=== PATIENT | female | born 1970 | race Caucasian/White ===

== ENCOUNTER 2025-04-18 03:00 | Emergency (ER) | payer MEDICAID, SELFPAY ==
[2025-04-18 03:01] VITALS: BMI 36.8
[2025-04-18 03:13] VITALS: BP 108/81; PULSE 122; RESP 18; TEMP 36.8; O2SAT 98
--- NOTE | 2025-04-18 03:27 | EDRME_ITS ---
Rapid Medical Screening Exam [facility] Arrival date/time: 04/18/25 03:00 54F with history of drug use presents to ED with 2 weeks of worsening painful rash after taking some new med, possibly Lasix. Chief Complaint: Skin/Abscess/Foreign Body Vital signs: Vital Signs Temperature 98.2 F 04/18/25 03:13 Pulse Rate 122 H 04/18/25 03:13 Respiratory Rate 18 04/18/25 03:13 Blood Pressure 108/81 04/18/25 03:13 Pulse Oximetry (%) 98 04/18/25 03:13 Oxygen Delivery Method Room Air 04/18/25 03:13
--- NOTE | 2025-04-18 03:36 | PD.EDSKIN ---
ED Skin Abcess FB-RME/HPI General Chief complaint: Skin/Abscess/Foreign Body Stated complaint: OOZING RASH ALL OVER BODY Time Seen by Provider: 04/18/25 03:37 Arrival date/time: 04/18/25 03:00 RME / HPI RME / HPI narrative: 04/18/25 03:00 54F with history of drug use presents to ED with 2 weeks of worsening painful rash after taking some new med, possibly Lasix. DR. GARDUNO MAIN ED EVALUATION: 54 y/o female with Hx of Methamphetamine use and Renal Disease presents to ED c/o all over painful red body rash x 2 weeks. Patient report rash spread to the face approximately 4 days ago after visiting her PCP. Patient has an upcoming appointment with a Railcar Carpenter on 04/21/2025. No other concerns or complaints expressed at this time. Related Data Previous Rx's ?Medication ?Instructions ?Recorded albuterol sulfate 90 mcg/actuation 2 puff inhalation Q6H PRN 07/21/19 aerosol inhaler shortness of breath or wheezing #6.7 grams loratadine 10 mg capsule 10 mg PO QDAY #30 caps 08/29/20 naproxen 500 mg tablet (Naprosyn) 500 mg PO BID PRN pain #30 tabs 09/04/20 [id number] 3.5 1 drp ophthalmic (eye) QID #5 mL 08/25/22 mg/mL-10,000 unit/mL-0.1% eye drops oxycodone-acetaminophen 5 mg-325 1 tab PO Q6H PRN pain #10 tabs 03/23/23 mg tablet (Percocet) prednisone 50 mg tablet 50 mg PO QDAY #7 tabs 04/18/25 Allergies Allergy/AdvReac Type Severity Reaction Status Date / Time latex Allergy Severe Rash Verified 03/29/23 13:50 Sulfa (Sulfonamide Allergy Severe RASH Verified 03/29/23 13:50 Antibiotics) Review of Systems Review of Systems Systems Reviewed: All systems reviewed, normal except as documented Past Medical History Past Medical History CARDIAC: Positive Cardiac Disorders and Hypertension RESPIRATORY: Positive Asthma GENITOURINARY: Positive Renal Disease ENDOCRINE: Positive Endocrine Disorders and Diabetes Mellitus Type 2 Surgical History SURGICAL: Positive Abdominal Surgery Social History SMOKING STATUS: Current some day smoker SUBSTANCE USE: methamphetamine SUBSTANCE LAST USED: unknown ED Exam Narrative Physical exam: Generally patient is alert in mild distress secondary to rash, heart regular rate and rhythm, lungs clear to auscultation equal bilaterally, oropharynx is moist and clear without wounds, abdomen soft bowel sounds present nondistended nontender, skin shows erythematous dried plaques all over the body including face and extremities. These are not confined only to the extensor surfaces. Course Quality Measures none Orders Category Date Time Status predniSONE Med 04/18/25 03:36 Discontinued 60 mg PO X1 ONE Vital Signs Vital signs: Vital Signs Temperature 98.2 F 04/18/25 03:13 Pulse Rate 122 H 04/18/25 03:13 Respiratory Rate 18 04/18/25 03:13 Blood Pressure 108/81 04/18/25 03:13 Pulse Oximetry (%) 98 04/18/25 03:13 Oxygen Delivery Method Room Air 04/18/25 03:13 Skin / Abscess / Foreign Body MDM Narrative MDM Narrative:: Scribe Attestation: IMarianela, am scribing for and in the presence of Dr. Garduno. Provider Notation: Although this document has been carefully reviewed, there may still be some phonetic and other typographical errors. These errors are purely grammatical due to imperfections in the software program and should not be construed in any way to? compromise the substance of the patient's medical care during this visit. Differential diagnosis: Psoriasis, eczema, dermatitis Patient will receive prednisone 60 mg p.o. and discharged on prednisone to be taken as prescribed. Patient has an appointment with a marble mechanic helper in 3 days. She must keep that appointment. I am uncertain whether or not this is psoriasis or eczema however I would err on stating that it is psoriasis because it is not only confined to extensor surfaces. Patient data External records reviewed:: [facility] previous records (Reviewed prior ED records from 04/22/23. Patient was seen for Acute renal failure (ARF).) Clinical information provided by:: patient Social determinants that could affect healthcare access:: substance use Patient has the following chronic illnesses:: Hypertension, Asthma, Renal Disease, Diabetes Mellitus Type 2 How is presenting disease/condition affected by chronic disease/condition?: exacerbated by Evaluation data The following diagnostics were reviewed and interpreted by me:: other (specify) (N/A) Lab and/or radiology exams considered but not ordered:: None Interpretation Summary: N/A Medications / Prescriptions Medications or Prescriptions considered but not ordered:: None Medication administrations:: Medication Administration History Discontinued Medications Prednisone (Prednisone 20 Mg Tablet) 60 mg PO X1 ONE Stop: 04/18/25 03:37 See above if any. Consultations Consultation(s) initiated? (list below): No Diagnosis Skin/Abscess Differential Diagnosis: abscess of skin or subcutaneous tissue, viral exanthem, dermatophytosis, urticaria, allergic reaction to drug, cellulitis, eczema, impetigo and contact dermatitis Most likely diagnosis given after review of the tests above:: None Admission Indicated Admission indicated?: not indicated Explain why admission is indicated or not indicated:: Patient does not meet admission criteria. Admission Request Was there a request for admission?: No Disposition Plan Disposition Plan: Discharge Discharge Attestation Discharge Attestation: The patient and all family members were given an opportunity to ask questions and understood the discharge instructions. Discharge instructions specifically effects, indications for sooner follow up or return to the emergency department, and the expected course of current diagnosis. Patient condition: Stable Discharge Plan Plan Patient Disposition: HOME (Self Care) Prescriptions/Referrals Prescriptions/Med Rec: New prednisone 50 mg tablet 50 mg PO QDAY Qty: 7 0RF No Action albuterol sulfate 90 mcg/actuation HFA aerosol inhaler 2 puff INH Q6H PRN (Reason: shortness of breath or wheezing) Qty: 6.7 0RF loratadine 10 mg capsule 10 mg PO QDAY Qty: 30 0RF naproxen [Naprosyn] 500 mg tablet 500 mg PO BID PRN (Reason: pain) Qty: 30 0RF neomycin-polymyxin B-dexameth 3.5mg/mL-10,000 unit/mL-0.1 % drops,suspension 1 drp ophthalmic (eye) QID Qty: 5 0RF oxycodone-acetaminophen [Percocet] 5-325 mg tablet 1 tab PO Q6H MDD 6 tabs PRN (Reason: pain) Qty: 10 0RF Problem List Clinical Impression: Psoriasis Patient/Caregiver Discharge Instructions Education Materials: ED Psoriasis Additional Instructions: Take the steroid as prescribed. Keep your appointment with the marble mechanic helper on Sunday. Print Language: Comoran Stand Alone Forms: [facility]ison Award Info., Patient Portal Info Letter
--- NOTE | 2025-04-18 04:25 | PC.NURSE ---
FACE AND ARMS NOTED TO BE SCALY IN APPEARANCE.
== END 2025-04-18 04:28 | disposition home or self-care (01) ==
LOC: SERX 05:50
PROVIDERS: Emergency Provider Emergency Medicine
DX: L40.9 Psoriasis, unspecified (principal)
CPT/HCPCS: 99282; J7512

== ENCOUNTER 2025-05-12 19:12 | Emergency (ER) | payer MEDICAID, SELFPAY ==
[2025-05-12 19:22] VITALS: BP 172/96; PULSE 98; RESP 19; TEMP 36.7; O2SAT 96
--- NOTE | 2025-05-12 19:26 | EKG_ITS ---
[facility] Test Date: 2025-05-12 Pat Name: CLOVIS CALVILLO Department: Room: - Gender: Female Ambulatory Care: : 1970 Requested By: Monster Bradley Order Number: [id number] Reading MD: Monster Bradley Measurements Intervals Warren Rate: 97 P: 54 MD: 153 QRS: 46 QRSD: 89 T: 47 QT: 315 QTc: 400 Interpretive Statements SINUS RHYTHM Compared to ECG 03/21/2023 17:57:39 No significant changes /store/S0/[id number].pdf
--- NOTE | 2025-05-12 19:26 | PD.EDRME ---
Rapid Medical Screening Exam RME Arrival date/time: 05/12/25 19:12 Chief Complaint: General Adult/Misc Complain Time Seen by Provider: 05/12/25 19:19 Vital signs: Vital Signs Temperature 98.1 F 05/12/25 19:22 Pulse Rate 98 05/12/25 19:22 Respiratory Rate 19 05/12/25 19:22 Blood Pressure 172/96 H 05/12/25 19:22 Pulse Oximetry (%) 96 05/12/25 19:22 Oxygen Delivery Method Room Air 05/12/25 19:22 RME Narrative: SOB, BLE swelling x1 week
[2025-05-12 20:02] LABS: Basophils # (Auto) 0.1 Thou/mm3 (0.0-0.2); Basophils % (Auto) 1 % (0-2.5); Eosinophils # (Auto) 0.3 Thou/mm3 (0.0-0.5); Eosinophils % (Auto) 5 % (0-10); Hematocrit 37.3 % (36.0-46.0); Hemoglobin 12.0 g/dL (12.0-16.0); Immature Granulocytes Auto 0.04 Thou/mm3 (0.00-0.00); Lymphocytes # (Auto) 2.1 Thou/mm3 (1.0-4.8); Lymphocytes % (Auto) 29 % (10-50); Mean Corpuscular HGB Conc 32.2 g/dl (31.0-37.0); Mean Corpuscular Hemoglobin 29.2 pg (25.0-35.0); Mean Corpuscular Volume 91 fL (80-100); Monocytes # (Auto) 0.5 Thou/mm3 (0.0-0.8); Monocytes % (Auto) 7 % (0-12); Neutrophils # (Auto) 4.1 Thou/mm3 (1.8-7.7); Neutrophils % (Auto) 58 % (37-80); Nucleated Red Blood Cell # 0.00 Thou/mm3 (0.00-0.00); Nucleated Red Blood Cell % 0 /100 WBC (0); Platelet Count 243 Thou/mm3 (140-440); RDW Standard Deviation 43.8 fL (36.4-46.3); Red Blood Count 4.11 Miln/mm3 (4.00-5.20); White Blood Count 7.0 Thou/mm3 (3.6-11.0)
[2025-05-12 20:31] LABS: B-Type Natriuretic Peptide 107 pg/mL (0-100)
[2025-05-12 20:36] LABS: Alanine Aminotransferase 20 U/L (10-49); Albumin, Serum 4.0 gm/dL (3.5-5.0); Albumin/Globulin Ratio 1.7 (1.2-2.2); Alkaline Phosphatase 167 U/L (46-116); Anion Gap 8 (7-16); Aspartate Amino Transferase < 10 U/L (0-34); BUN/Creatinine Ratio 11 Ratio (12-20); Bilirubin,Total 0.2 mg/dL (0.3-1.2); Blood Urea Nitrogen 10 mg/dL (9-23); Calcium 9.7 mg/dL (8.3-10.6); Calcium (Corrected) 9.7 mg/dL (8.5-10.1); Carbon Dioxide 26.4 mMol/L (20.0-31.0); Chloride 101 mMol/L (98-107); Creatinine (Component) 0.9 mg/dL (0.6-1.3); Globulin 2.4 gm/dL (2.3-3.5); Osmolality,Calculated 293 (275-295); Potassium 4.6 mMol/L (3.4-5.1); Sodium 135 mMol/L (136-145); Total Protein 6.4 gm/dL (5.7-8.2); Troponin I < 0.020 ng/mL (0.0-0.045); eGFR > 60 See Note
[2025-05-12 20:45] LABS: Glucose 529 mg/dL (74-106)
--- NOTE | 2025-05-12 21:13 | PC.NURSE ---
PT CALLED X 2 FOR XRAY NO ANSWER AT ER LOBBY OR OUTSIDE ER.
--- NOTE | 2025-05-12 21:16 | PC.NURSE ---
NO ANSWER AT ER LOBBY OR OUTSIDE ER TO BE PUT TO ROOM.
--- NOTE | 2025-05-12 21:25 | PC.NURSE ---
NO ANSWER AT ER LOBBY OR OUTSIDE ER TO DO XRAY AND PUT PT TO ROOM.
== END 2025-05-12 21:33 | disposition left against medical advice (07) ==
LOC: SERX 19:51
PROVIDERS: Physician Assistant; Emergency Provider Emergency Medicine; PCP Family Medicine
DX: R06.02 Shortness of breath (principal); Z53.29 Procedure and treatment not carried out because of patient's decision for other reasons
CPT/HCPCS: 36415; 80053; 83880; 84484; 85025; 93005; 99283

== ENCOUNTER 2025-06-07 10:09 | Inpatient (IN) | payer MEDICAID, SELFPAY ==
[2025-06-07] VITALS (7 sets, daily range): BP systolic 127–161; BP diastolic 77–132; PULSE 87–125; RESP 18–94; TEMP 36.1–37.1; O2SAT 94–100
--- NOTE | 2025-06-07 10:27 | PD.EDAMS ---
Altered Mental Status RME/HPI General Chief Complaint: Altered Mental Status Stated Complaint: ALTERED Time Seen by Provider: 06/07/25 10:28 Arrival date/time: 06/07/25 10:09 RME / HPI RME / HPI narrative: DR. MEZA MAIN ED EVALUATION: 54-year-old female with history of diabetes mellitus and hypertension was BIBA for altered mental status over the past 2 days. Per EMS, a friend reported the patient had been acting confused and not herself for the last 2 days. The patient had been staying at her friend?s house for 4 days, and they later remembered she has diabetes and they called 911. EMS reports blood glucose 568, BP 272/124, and HR 122 en route. On arrival, blood glucose 519. Patient has not been taking her diabetes or hypertension medications. She reports pain all over and dysuria, but denies vomiting, diarrhea, or recent drug use today. Related Data Previous Rx's ?Medication ?Instructions ?Recorded albuterol sulfate 90 mcg/actuation 2 puff inhalation Q6H PRN 07/21/19 aerosol inhaler shortness of breath or wheezing #6.7 grams loratadine 10 mg capsule 10 mg PO QDAY #30 caps 08/29/20 amoxicillin 875 mg-potassium 1 tab PO BID 3 days #6 tabs 06/09/25 clavulanate 125 mg tablet atorvastatin 40 mg tablet (Lipitor) 40 mg PO QPM 1 month #30 tabs 06/09/25 blood-glucose,chief strategy officer,cont #1 ea 06/09/25 (FreeStyle Mary 3 [place]) glucagon 3 mg/actuation nasal spray 3 mg intranasal PRN PRN 06/09/25 hypoglycemia #2 ea insulin degludec 100 unit/mL (3 30 unit (0.3 mL) subcut QDAY 1 06/09/25 mL) subcutaneous pen month #15 mL insulin lispro 100 unit/mL 10 unit (0.1 mL) subcut TID 1 06/09/25 subcutaneous pen (Admelog SoloStar month #15 mL U-100 Insulin lispro) nicotine 14 mg/24 hr daily 14 mg top QDAY 14 days #14 ea 06/09/25 transdermal patch pen needle, diabetic 31 gauge x #100 ea 06/09/2508/23 (1st Tier Unifine Pentips) Allergies Allergy/AdvReac Type Severity Reaction Status Date / Time latex Allergy Severe Rash Verified 05/12/25 19:13 Sulfa (Sulfonamide Allergy Severe RASH Verified 05/12/25 19:13 Antibiotics) Review of Systems Review of Systems Systems Reviewed: All systems reviewed, normal except as documented Past Medical History Past Medical History CARDIAC: Positive Cardiac Disorders and Hypertension RESPIRATORY: Positive Asthma GENITOURINARY: Positive Renal Disease ENDOCRINE: Positive Endocrine Disorders and Diabetes Mellitus Type 2 Surgical History SURGICAL: Positive Abdominal Surgery Social History SMOKING STATUS: Current some day smoker SUBSTANCE USE: methamphetamine SUBSTANCE LAST USED: unknown ED Exam Narrative Physical exam: GENERAL APPEARANCE: alert and oriented x 4, well-developed, well-nourished, moaning in discomfort VITALS: All vitals were reviewed and the pulse ox is 96% on room air, which is normal according to my interpretation. HEENT: Normocephalic, atraumatic; pupils equal, round, reactive to light; EOMI; mucous membranes pink, moist; oropharynx clear NECK: Supple LUNGS: CTABL; no wheezes, no rales, no rhonchi HEART: Regular rate, regular rhythm; normal S1, S2; no murmurs ABDOMEN: non distended; normal BS; soft, no tenderness, no guarding, no rebound; no masses, no organomegaly, no hernia BACK: no CVA tenderness EXTREMITIES: atraumatic; no edema NEUROLOGIC: awake; alert and oriented x4; cranial nerves II-XII grossly intact; no focal sensory or motor deficits PSYCHIATRIC: appropriate mood and affect SKIN: warm, dry, normal color; no rashes Course Quality Measures none Orders Category Date Time Status Bedside Blood Glucose Q1HR Care 06/07/25 10:29 Completed Bedside COVID-19 Antigen Test NOW Care 06/07/25 10:30 Completed Bedside Influenza A&B Antigen Test NOW Care 06/07/25 10:30 Completed Feed Inspection Supervisor NOW Care 06/07/25 10:28 Completed EKG (ED ONLY) *Do not use* NOW Care 06/07/25 10:[address] head/brain wo con Stat Exams 06/07/25 12:24 Completed EKG (ED Only) Stat Exams 06/07/25 10:28 Draft XR chest 1V portable Stat Exams 06/07/25 10:28 Completed Alcohol, Blood Medical Stat Lab 06/07/25 10:30 Completed B-Type Natriuretic Peptide Stat Lab 06/07/25 10:30 Completed Beta Hydroxybutyrate Stat Lab 06/07/25 10:30 Completed Blood Culture (Lab) Stat Lab 06/07/25 11:50 Results CBC Stat Lab 06/07/25 10:30 Completed Comprehensive Metabolic Panel Stat Lab 06/07/25 10:30 Completed Drug Screen,Urine Stat Lab 06/07/25 10:57 Completed Influenza A & B Rapid Panel Urgent Lab 06/07/25 11:25 Completed Lactate (Lactic Acid) Stat Lab 06/07/25 10:30 Completed Lipase Stat Lab 06/07/25 10:30 Completed Magnesium Stat Lab 06/07/25 10:30 Completed Partial Thromboplastin Time Stat Lab 06/07/25 10:30 Completed Procalcitonin Stat Lab 06/07/25 10:30 Completed Prothrombin Time with INR Stat Lab 06/07/25 10:30 Completed Renal Function Panel Stat Lab 06/07/25 11:50 Completed Troponin I Stat Lab 06/07/25 10:30 Completed UA, C/S IF [Urinalysis, C/S if Indicated] Stat Lab 06/07/25 10:57 Completed Insulin Regular Med 06/07/25 11:30 Discontinued 10 unit IV X1 ONE Sodium Chloride 0.9% 1000 ml [Ns] 1,000 ml Med 06/07/25 10:28 Discontinued IV 999 mls/hr Sodium Chloride 0.9% 1000 ml [Ns] 1,000 ml Med 06/07/25 11:35 Discontinued IV 999 mls/hr cefTRIAXone/D5w 1gm IV premix [Rocephin/D5w 1gm IV Med 06/07/25 11:34 Discontinued premix] 1 gm in 50 ml IV X1 Vital Signs Vital signs: Vital Signs Temperature 98.7 F 06/07/25 10:15 Pulse Rate 125 H 06/07/25 10:15 Respiratory Rate 18 06/07/25 10:15 Blood Pressure 161/132 H 06/07/25 10:15 Pulse Oximetry (%) 96 06/07/25 10:15 Oxygen Delivery Method Room Air 06/07/25 10:15 Altered Mental Status MDM Narrative MDM Narrative:: I, Jadyn Gomes, am scribing for and in the presence of Dr. Meza. Patient data External records reviewed:: [facility] previous records and EMS form Clinical information provided by:: patient and EMS Social determinants that could affect healthcare access:: substance use Patient has the following chronic illnesses:: diabetes mellitus and hypertension How is presenting disease/condition affected by chronic disease/condition?: exacerbated by Evaluation data The following diagnostics were reviewed and interpreted by me:: lab results, radiology exam(s) and EKG tracing(s) (My interpretation: EKG performed at 1033 hours, sinus rhythm, rate 124, mild baseline wander, no acute ischemic changes) Lab and/or radiology exams considered but not ordered:: none Interpretation Summary: Procedure(s): XR chest 1V portable Accession Number(s): [id number] cc: Solomon Samuels MD; Ria Meza MD~ EXAMINATION: AP chest single view TECHNIQUE: AP portable semiupright chest single view Date and time: June 07, 2025, 1059 hours INDICATIONS: Shortness of breath chest pain today. FINDINGS: Minor prominence left ventricle Mild vascular congestion. No lobar pneumonia or pulmonary edema IMPRESSION: Mild vascular congestion. No pneumonia or pulmonary edema Dictated By: Solomon Samuels MD Procedure(s): CT head/brain wo con Accession Number(s): [id number] cc: Ta Loaiza PA-C; Solomon Samuels MD; Ria Meza MD~ Examination: CT brain head without contrast. 2-D sagittal coronal reconstructions Date and time of exam: June 07, 2025, 12:50 p.m. INDICATIONS: Onset altered mental status beginning 2 days ago CTDI: vol (mGy): 45.9 DLP: (mGycm): 868 Technique: Multiple CT axial sections of the brain have been obtained, 5 mm slice thickness. Contrast has not been administered. 2-D sagittal, coronal reconstructions have been obtained Low dose protocols were performed. One or more of the following dose reduction techniques were used; automated exposure control, adjustment of the mA and/or KV according to patient size, use of iterative reconstruction technique. Findings: No significant ventricular enlargement. Intra-axial or extra-axial hemorrhage density is not seen. No mass effect or midline shift Basal cisterns are not remarkable. Fourth ventricle is midline. Cranial vault intact. Impression: Negative for acute hemorrhage, mass effect or midline shift Dictated By: Solomon Samuels MD Medications / Prescriptions Medications or Prescriptions considered but not ordered:: none Medication administrations:: Medication Administration History Discontinued Medications Acetaminophen (Acetaminophen 325 Mg Tablet) 650 mg PO Q6H PRN PRN Reason: Fever >100.4 or mild pain 1-3 Stop: 07/07/25 14:09 Hydrocodone Bitart/Acetaminophen (Hydrocodone/Apap 5/325 Tablet) 1 tab PO Q6HR PRN PRN Reason: PAIN SCALE 4-10(Mod-Sev Stop: 06/12/25 14:09 Albuterol/Ipratropium (Albuterol/Ipratropium (Duoneb) Rt Marisol 3 Ml Nebu) 3 ml INH Q6HRRT PRN PRN Reason: WHEEZING Stop: 07/07/25 18:59 Dextrose (Dextrose 50%-Water Inj 50 Ml Syringe) 25 ml IV Q15MIN PRN PRN Reason: BG 50-70 responsive npo pt Stop: 07/07/25 14:14 Dextrose (Dextrose 50%-Water Inj 50 Ml Syringe) 50 ml IV Q15MIN PRN PRN Reason: BG <50 OR BG <70 & pt unresponsive Stop: 07/07/25 14:14 Docusate Sodium (Docusate Sod 100 Mg Capsule) 100 mg PO QDAY DARIN; Protocol Stop: 07/07/25 14:14 Last Admin: 06/09/25 08:58 Dose: 100 mg Documented By: Admin: 06/08/25 08:07 Dose: Not Given Documented By: BR Non-Admin Reason: Patient Refused Admin: 06/07/25 14:22 Dose: Not Given Documented By: CS Non-Admin Reason: Patient Refused Comments: Pt had large bowel movement Glucagon (Glucagon Inj 1 Mg Vial) 1 mg IM Q15MIN PRN PRN Reason: BG <70, and no IV access Heparin Sodium (Porcine) (Heparin Sod Inj 5000 Unit/Ml Vial) 5,000 unit SC Q12HR DARIN Stop: 06/21/25 20:59 Last Admin: 06/09/25 08:58 Dose: 5,000 unit Documented By: CB Co-signed By: MR Admin: 06/08/25 22:05 Dose: 5,000 unit Documented By: KL Co-signed By: CG Admin: 06/08/25 08:07 Dose: 5,000 unit Documented By: BR Co-signed By: JRR Admin: 06/07/25 20:50 Dose: 5,000 unit Documented By: AM Co-signed By: IG Sodium Chloride (Ns) 1,000 mls @ 999 mls/hr IV .Q1H1M ONE Stop: 06/07/25 11:28 Last Infusion: 06/07/25 11:31 Dose: Infused Documented By: Admin: 06/07/25 10:30 Dose: 999 mls/hr Documented By: CS Ceftriaxone Sodium/Dextrose (Rocephin/D5w 1gm Iv Premix) 1 gm in 50 mls @ 100 mls/hr IV X1 ONE Stop: 06/07/25 12:03 Last Infusion: 06/07/25 12:32 Dose: Infused Documented By: Admin: 06/07/25 12:02 Dose: 100 mls/hr Documented By: CS Sodium Chloride (Ns) 1,000 mls @ 999 mls/hr IV .Q1H1M ONE Stop: 06/07/25 12:35 Last Infusion: 06/07/25 13:04 Dose: Infused Documented By: Admin: 06/07/25 12:03 Dose: 999 mls/hr Documented By: CS Lactated Ringer's (Lactated Ringers) 1,000 mls @ 999 mls/hr IV .Q1H1M ONE Stop: 06/07/25 15:19 Last Admin: 06/07/25 14:34 Dose: 999 mls/hr Documented By: CS Lactated Ringer's (Lactated Ringers) 1,000 mls @ 125 mls/hr IV .Q8H DARIN Stop: 06/08/25 06:19 Last Admin: 06/07/25 21:15 Dose: 125 mls/hr Documented By: Admin: 06/07/25 17:52 Dose: Not Given Documented By: JRCatrachito Non-Admin Reason: started in ED Piperacillin/Tazobactam/Dextrose (Zosyn) 3.375 gm in 50 mls @ 12.5 mls/hr IV Q8HR DARIN; Protocol Stop: 06/14/25 21:59 Last Admin: 06/09/25 14:05 Dose: Not Given Documented By: ALLAN Non-Admin Reason: Discharged Admin: 06/09/25 05:29 Dose: 12.5 mls/hr Documented By: Infusion: 06/09/25 02:05 Dose: Infused Documented By: Admin: 06/08/25 22:05 Dose: 12.5 mls/hr Documented By: Infusion: 06/08/25 17:25 Dose: Infused Documented By: Admin: 06/08/25 13:25 Dose: 12.5 mls/hr Documented By: Infusion: 06/08/25 09:15 Dose: Infused Documented By: Admin: 06/08/25 05:15 Dose: 12.5 mls/hr Documented By: Infusion: 06/08/25 01:15 Dose: Infused Documented By: Admin: 06/07/25 21:15 Dose: 12.5 mls/hr Documented By: AM Piperacillin/Tazobactam/Dextrose (Zosyn) 3.375 gm in 50 mls @ 100 mls/hr IV X1 ONE; Protocol Stop: 06/07/25 14:59 Last Admin: 06/07/25 14:37 Dose: 100 mls/hr Documented By: KAMINI Lactated Ringer's (Lactated Ringers) 1,000 mls @ 999 mls/hr IV .Q1H1M ONE Stop: 06/07/25 17:44 Last Admin: 06/07/25 17:47 Dose: 999 mls/hr Documented By: RABIA Magnesium Sulfate (Magnesium Sulfate Ivpb) 4 gm in 50 mls @ 12.5 mls/hr IV X1 ONE Stop: 06/08/25 12:32 Last Admin: 06/08/25 10:09 Dose: 12.5 mls/hr Documented By: MATILDA Insulin Degludec (Insulin Degludec 5 Unit/0.05 Ml (Per 5 Units)) 10 unit SC QDAY DARIN Stop: 06/08/25 09:00 Last Admin: 06/08/25 08:07 Dose: 10 unit Documented By: MATILDA Co-signed By: RABIA Admin: 06/07/25 14:34 Dose: 10 unit Documented By: KAMINI Co-signed By: LJ Insulin Degludec (Insulin Degludec 5 Unit/0.05 Ml (Per 5 Units)) 25 unit SC QDAY DARIN Stop: 07/09/25 08:59 Last Admin: 06/09/25 07:39 Dose: 25 unit Documented By: ALLAN Co-signed By: MR Insulin Degludec (Insulin Degludec 5 Unit/0.05 Ml (Per 5 Units)) 15 unit SC X1 ONE Stop: 06/08/25 08:44 Last Admin: 06/08/25 10:19 Dose: 15 unit Documented By: MATILDA Co-signed By: ABIMBOLA Insulin Human Lispro (Insulin Lispro (Admelog) 1 Unit/0.01 Ml Unit) 0 unit SC ACHS [facility]; Protocol Stop: 07/07/25 16:59 Last Admin: 06/09/25 11:37 Dose: 4 unit Documented By: ALLAN Co-signed By: MR Admin: 06/09/25 07:40 Dose: 5 unit Documented By: ALLAN Co-signed By: MR Admin: 06/08/25 22:06 Dose: 5 unit Documented By: LISA Co-signed By: SHARLENE Admin: 06/08/25 17:39 Dose: 3 unit Documented By: MR Co-signed By: CHIP Admin: 06/08/25 12:19 Dose: 4 unit Documented By: MATILDA Co-signed By: SAVITA Admin: 06/08/25 08:06 Dose: 4 unit Documented By: MATILDA Co-signed By: RABIA Admin: 06/07/25 20:49 Dose: 4 unit Documented By: AM Co-signed By: IG Admin: 06/07/25 16:05 Dose: 6 unit Documented By: KAMINI Co-signed By: EF Insulin Human Lispro (Insulin Lispro (Admelog) 1 Unit/0.01 Ml Unit) 5 unit SC ACHS DARIN Stop: 07/07/25 16:59 Last Admin: 06/08/25 08:06 Dose: 5 unit Documented By: MATILDA Co-signed By: RABIA Admin: 06/07/25 20:49 Dose: 5 unit Documented By: AM Co-signed By: IG Admin: 06/07/25 16:04 Dose: 5 unit Documented By: KAMINI Co-signed By: EF Insulin Human Lispro (Insulin Lispro (Admelog) 1 Unit/0.01 Ml Unit) 8 unit SC ACHS DARIN Stop: 07/08/25 11:29 Last Admin: 06/09/25 11:37 Dose: 8 unit Documented By: ALLAN Co-signed By: MR Admin: 06/09/25 07:40 Dose: 8 unit Documented By: ALLAN Co-signed By: MR Admin: 06/08/25 22:06 Dose: 8 unit Documented By: LISA Co-signed By: SHARLENE Admin: 06/08/25 17:42 Dose: Not Given Documented By: MR Non-Admin Reason: HELD PER DR. DEL RIO Admin: 06/08/25 12:18 Dose: 8 unit Documented By: MATILDA Co-signed By: SAVITA Insulin Human Regular (Insulin Hum Regular 1 Unit/0.01 Ml (Per Unit)) 10 unit IV X1 ONE Stop: 06/07/25 11:31 Last Admin: 06/07/25 12:01 Dose: 10 unit Documented By: KAMINI Co-signed By: BY Insulin Human Regular (Insulin Hum Regular 1 Unit/0.01 Ml (Per Unit)) 10 unit IV X1 ONE Stop: 06/07/25 14:19 Last Admin: 06/07/25 14:40 Dose: Not Given Documented By: KAMINI Non-Admin Reason: Change of Condition Nicotine (Nicotine Patch 14 Mg/24 Hr Patch.Td24) 14 mg TOP QDAY DARIN Stop: 07/07/25 14:29 Last Admin: 06/09/25 08:58 Dose: 14 mg Documented By: Admin: 06/08/25 08:05 Dose: 14 mg Documented By: Admin: 06/07/25 15:26 Dose: 14 mg Documented By: KAMINI Nystatin (Nystatin Susp 5 Ml Udc) 5 ml PO QID DARIN Stop: 06/15/25 11:59 Last Admin: 06/09/25 11:38 Dose: 5 ml Documented By: Admin: 06/09/25 05:29 Dose: 5 ml Documented By: Admin: 06/08/25 22:06 Dose: 5 ml Documented By: Admin: 06/08/25 17:39 Dose: 5 ml Documented By: Admin: 06/08/25 12:20 Dose: 5 ml Documented By: MATILDA Ondansetron HCl (Ondansetron Inj 2 Mg/Ml Inj 2 Ml) 4 mg IVP Q6H PRN; Protocol PRN Reason: NAUSEA OR VOMITING Stop: 07/07/25 14:09 Pantoprazole Sodium (Pantoprazole 40 Mg Tablet) 40 mg PO QDAY DARIN Stop: 07/07/25 14:14 Last Admin: 06/09/25 08:58 Dose: 40 mg Documented By: Admin: 06/08/25 08:05 Dose: 40 mg Documented By: Admin: 06/07/25 14:33 Dose: 40 mg Documented By: CS Potassium Chloride (Potassium Chloride 10% 20 Meq/15 Ml Udc) 40 meq PO X1 ONE Stop: 06/08/25 08:34 Last Admin: 06/08/25 10:18 Dose: 40 meq Documented By: MATILDA see above Consultations Consultation(s) initiated? (list below): Yes Consultation #1 (Physician, Specialty, Details): Discussed test HPI, PMHx, lab, radiology results and/or management with hospitalist. Will admit for further evaluation and management. Accepts patient for admission. Diagnosis Differential diagnosis altered mental status: other (Hyperglycemic hyperosmolar state (HHS), diabetic ketoacidosis (DKA), an UTI.) Most likely diagnosis given after review of the tests above:: Hyperglycemia AMS Sepsis Admission Indicated Admission indicated?: indicated Admission Request Was there a request for admission?: Yes Admission Attestation Admission request attestation: Discussed case with [] from Hospitalist service regarding admission. Discussed patients ED course, exam findings, labs, and radiology results. The Hospitalist [agrees,declines] to accept the patient for admission. Disposition Plan Disposition Plan: Admit Discharge Plan Plan Patient Disposition: Admit Acute Care w/in Hospital Patient condition on transfer: Stable Problem List Clinical Impression: Sepsis
--- NOTE | 2025-06-07 10:28 | EKG_ITS ---
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
[2025-06-07] MEDS: SODIUM CHLORIDE 0.9% 1000 ML 1,000 ML 999 ML IV ×2 (10:30→12:03)
[2025-06-07 10:51] LABS: Beta Hydroxybutyrate 1.4 mmol/L (<0.6)
[2025-06-07 11:02] LABS: Basophils # (Auto) 0.2 Thou/mm3 (0.0-0.2); Basophils % (Auto) 1 % (0-2.5); Eosinophils # (Auto) 0.0 Thou/mm3 (0.0-0.5); Eosinophils % (Auto) 0 % (0-10); Hematocrit 58.3 % (36.0-46.0); Hemoglobin 18.5 g/dL (12.0-16.0); Immature Granulocytes Auto 0.13 Thou/mm3 (0.00-0.00); Lymphocytes # (Auto) 3.3 Thou/mm3 (1.0-4.8); Lymphocytes % (Auto) 14 % (10-50); Mean Corpuscular HGB Conc 31.7 g/dl (31.0-37.0); Mean Corpuscular Hemoglobin 29.3 pg (25.0-35.0); Mean Corpuscular Volume 92 fL (80-100); Monocytes # (Auto) 1.1 Thou/mm3 (0.0-0.8); Monocytes % (Auto) 5 % (0-12); Neutrophils # (Auto) 18.8 Thou/mm3 (1.8-7.7); Neutrophils % (Auto) 80 % (37-80); Nucleated Red Blood Cell # 0.00 Thou/mm3 (0.00-0.00); Nucleated Red Blood Cell % 0 /100 WBC (0); Platelet Count 444 Thou/mm3 (140-440); RDW Standard Deviation 46.7 fL (36.4-46.3); Red Blood Count 6.32 Miln/mm3 (4.00-5.20); White Blood Count 23.6 Thou/mm3 (3.6-11.0)
[2025-06-07 11:05] LABS: INR 1.1 (0.9-1.3); Partial Thromboplastin Time 29.0 Seconds (22.0-36.0); Prothrombin Time 11.4 Seconds (9.0-12.2)
[2025-06-07 11:09] LABS: Alanine Aminotransferase 94 U/L (10-49); Albumin, Serum 5.1 gm/dL (3.5-5.0); Albumin/Globulin Ratio 1.5 (1.2-2.2); Alcohol, Blood Medical < 3.0 mg/dL (0-10.0); Alkaline Phosphatase 152 U/L (46-116); Anion Gap 19 (7-16); Aspartate Amino Transferase 64 U/L (0-34); BUN/Creatinine Ratio 23 Ratio (12-20); Bilirubin,Total 0.5 mg/dL (0.3-1.2); Blood Urea Nitrogen 32 mg/dL (9-23); Calcium 9.9 mg/dL (8.3-10.6); Calcium (Corrected) 9.9 mg/dL (8.5-10.1); Carbon Dioxide 22.5 mMol/L (20.0-31.0); Chloride 103 mMol/L (98-107); Creatinine (Component) 1.4 mg/dL (0.6-1.3); Globulin 3.4 gm/dL (2.3-3.5); Lipase 34 U/L (12-53); Magnesium 2.3 mg/dL (1.6-2.6); Osmolality,Calculated 312 (275-295); Potassium 4.2 mMol/L (3.4-5.1); Sodium 144 mMol/L (136-145); Total Protein 8.5 gm/dL (5.7-8.2); Troponin I < 0.002 ng/mL (0.0-0.045); eGFR 45 See Note
[2025-06-07 11:10] LABS: Glucose 440 mg/dL (74-106)
[2025-06-07 11:10] LABS: Collection Type, Urine Clean Catch
--- NOTE | 2025-06-07 11:13 | PC.NURSE ---
Pt BIBA due to AMS x2 days according to friend on scene. Friend today thought to check pt's bs and called EMS because it was high. EMS got BS of 568, GCS 14 (confused as to what was happening) BP of 212/124. Pt has hx of meth use, DM2, unknown rash (states it's eczema) Curent BS 519, oriented to self, location, and gave me her month and day of birthday
[2025-06-07 11:19] LABS: Bacteria,Urine 4+; Bilirubin,Urine Negative (Negative); Blood,Urine 2+ (Negative); Budding Yeast,Urine Present; Color,Urine Yellow (Lt Yel-Yel); Culture Indicated,Urine Contaminated; Glucose, Urine 4+ (Negative); Ketones,Urine 1+ (Negative); Leukocyte Esterase,Urine Positive (Negative); Nitrite,Urine Negative (Negative); PH,Urine 5.5 (5.0-7.0); Protein,Urine 1+ (Neg - Trace); RBC,Urine 530 /hpf (0-3); Specific Gravity,Urine 1.032 (1.001-1.035); Squamous Epithelial Cell,Urine 17 /hpf (0-5); Urobilinogen,Urine 2.0 mg/dL (0.0-1.0); WBC,Urine 398 /hpf (0-5)
[2025-06-07 11:20] LABS: Clarity,Urine Turbid (Clear/Hazy)
[2025-06-07 11:29] LABS: Amphetamine/Methamp Scrn,U Negative (Negative); Barbiturate Screen,Urine Negative (Negative); Benzodiazepines Screen,Urine Negative (Negative); Benzoylecgonine Screen, Ur Negative (Negative); Fentanyl Screen,Urine Negative (Negative); Opiate Screen,Urine Negative (Negative); THC Screen,Urine Negative (Negative)
[2025-06-07 11:45] LABS: B-Type Natriuretic Peptide < 20 pg/mL (0-100)
[2025-06-07 11:54] LABS: Influenza A Ag Negative; Influenza B Ag Negative
[2025-06-07] MEDS: INSULIN HUM REGULAR 1 UNIT/0.01 ML (PER UNIT) 10 UNIT IV (12:01)
[2025-06-07] MEDS: cefTRIAXone/D5w 1gm IV premix 1 GM/50 ML BAG IV (12:02)
[2025-06-07 12:18] LABS: Lactate (Lactic Acid) 4.6 mMol/L (0.4-2.0)
--- NOTE | 2025-06-07 12:24 | XR_ITS ---
Examination: CT brain head without contrast. 2-D sagittal coronal reconstructions Date and time of exam: June 07, 2025, 12:50 p.m. INDICATIONS: Onset altered mental status beginning 2 days ago CTDI: vol (mGy): 45.9 DLP: (mGycm): 868 Technique: Multiple CT axial sections of the brain have been obtained, 5 mm slice thickness. Contrast has not been administered. 2-D sagittal, coronal reconstructions have been obtained Low dose protocols were performed. One or more of the following dose reduction techniques were used; automated exposure control, adjustment of the mA and/or KV according to patient size, use of iterative reconstruction technique. Findings: No significant ventricular enlargement. Intra-axial or extra-axial hemorrhage density is not seen. No mass effect or midline shift Basal cisterns are not remarkable. Fourth ventricle is midline. Cranial vault intact. Impression: Negative for acute hemorrhage, mass effect or midline shift
[2025-06-07 12:52] LABS: Procalcitonin 0.07 ng/ml (0.0-0.49)
--- NOTE | 2025-06-07 13:12 | PC.NURSE ---
Lab verified influenza A & B NEGATIVE
[2025-06-07 14:01] LABS: Albumin, Serum 4.3 gm/dL (3.5-5.0); Anion Gap 20 (7-16); BUN/Creatinine Ratio 35 Ratio (12-20); Blood Urea Nitrogen 42 mg/dL (9-23); Calcium 8.7 mg/dL (8.3-10.6); Calcium (Corrected) 8.7 mg/dL (8.5-10.1); Carbon Dioxide 17.4 mMol/L (20.0-31.0); Chloride 106 mMol/L (98-107); Creatinine (Component) 1.2 mg/dL (0.6-1.3); Osmolality,Calculated 313 (275-295); Phosphorous 4.9 mg/dL (2.4-5.1); Potassium 4.3 mMol/L (3.4-5.1); Sodium 143 mMol/L (136-145); eGFR 54 See Note
[2025-06-07 14:13] LABS: Glucose 425 mg/dL (74-106)
--- NOTE | 2025-06-07 14:21 | PC.CC ---
Patient is a 54 year-old female who presents to the hospital for Altered. HYBRID POWERTRAIN DEVELOPMENT ENGINEER, Ashley made [id number] contact with patient introduced self, role, and reason for visit. Patient appeared alert and oriented to self, location, and situation. At bedside was patient's life partner, Brian Guevara who patient provided verbal consent to remain in the room and assist with initial assessment. HYBRID POWERTRAIN DEVELOPMENT ENGINEER, discussed limits of confidentiality. Patient confirmed information on demographics and reports her next of kin is her daughter, Summer Cordero . Patient reports to being independent with ambulation and ADLs. Patient is diabetic and began to not feel well 3-4 days ago. Patient does not require any DME and is not a dialysis patient. Patient's primary provider is Ta Loaiza and uses [facility] for prescription medications. Upon discharge patient plans to return home. client services analyst to follow up with any discharge needs.
[2025-06-07] MEDS: PANTOPRAZOLE 40 MG TABLET PO (14:33)
[2025-06-07] MEDS: RINGERS LACTATED 1000 ML 1,000 ML 999 ML IV ×2 (14:34→17:47)
[2025-06-07] MEDS: INSULIN DEGLUDEC 5 UNIT/0.05 ML (PER 5 UNITS) 10 UNIT SC (14:34)
[2025-06-07] MEDS: PIPER/TAZO 3.375 GM PREMIX 3.375 GM/50 ML BAG IV ×2 (14:37→21:15)
--- NOTE | 2025-06-07 14:41 | PC.NURSE ---
called dr. nuno regarding dka and tele vs icu. Per Dr. Nuno, he talked with Home [facility] Social Worker and DKA mild and can be treated on the tele unit
--- NOTE | 2025-06-07 15:02 | PD.RESHP ---
Documentation for date of: 06/07/25 D4-year-old female with a past medical history of hypertension, diabetes mellitus type 2 [id number], medication nonadherent, COPD, active smoker, history of cholecystectomy and appendectomy (2022, 2020) presented to the emergency room via EMS with a chief complaint of altered mental status for over 2 days with blood sugar of 568 as noted by EMS during and route to hospital. Patient complaining of generalized weakness. In the emergency room patient was given bolus of, 10 units of regular insulin and started on ceftriaxone. Acute metabolic encephalopathy likely secondary to DKA. CT head negative. TSH ordered. Continued clinical improvement as glucose down trended. Patient was admitted for DKA with metabolic acidosis with an anion gap of 19 bicarb 22 that trended up to 17.4. Lactic acidosis of 4.6. Beta hydroxybutyrate 1.4. UA noted for ketones +1. Previous A1c 9.8 (03/22/2023). Repeat A1c and lipid panel with morning labs. Patient's started on degludec 10 units. Sliding scale and scheduled lispro 5 units. Additional 10 units of regular insulin not given, as patient's bedside glucose continue to downtrend. Additional LR bolus given. Total 2 L bolus given during ER course and floor course. Lactated ringer started on maintenance of 125. Follow-up with renal panel. Follow-up with lactic acid. Urinary tract infection SIRS positive. Pending urine culture. Patient started on Zosyn 3.375. Leukocytosis. Transaminitis noted with AST 64 and ALT 94. Concerning for dehydration in the setting of DKA and decreased oral intake. Hepatitis and HIV cannot be ruled out, follow-up with labs. PMH: Same as above Past Surgical History: Cholecystectomy and appendectomy Home Medication: Medication non-compliance. Pending reconciliation. Social History: Smoking history, 30+ pack year smoking history Allergies: Sulfa and Latex Code Status: Full Senior Resident Attestation: I have discussed the case with supervising physician and general internist and physician leader physician involved in the care of patient. I personally saw and examined patient and discussed the assessment and plan with the entire medical team, including attending. I agree with assessment and plan as documented below. - The patient's plan was discussed with attending Dr. Calvin Hernandez MD PGY2 Internal Medicine HPI History of Present Illness Chief complaint: altered mental status History of present illness: 54-year-old female with PMHx of diabetes mellitus, amphetamine use disorder and hypertension presents for altered mental status over the past 2 days. ED Course: Blood glucose 519 on arrival. 98.7 T 125 HR 18 RR 161/132 BP 96% on RA. WBC 23.6, PLT 444, Hbg 18.5, Hct 58.3. Coag panel unremarkable. Anion Gap 19, BUN 32, Cr 1.4 and Glucose 440. Calc Osm 312. Lactate 4.6. BHB 1.4. UA glucose 4+, ketones 1+, blood 2+, urine RBC 530, urine WBC 398, urine bacteria 4+, and urine yeast (budding) present. CXR showed mild vascular congestion, no PNA and no pulmonary edema. EKG NSR. In the ED, given 2L bolus of NS, rocephin 1g IV, and regular insulin 10U IV. At bedside, AOx2 (not oriented to time), patient says she was staying at a friend's house. Admits to diabetes history, however not currently taking her diabetes medications. Patient says she stopped Ozempic due to nausea and poor oral intake. Denies taking insulin and cannot remember what last diabetes medication she was prescribed. Unsure of her primary care physician/clinic. Patient admits to suprapubic tenderness, urgency, and dysuria. Denies sick contacts. Current smoker, cannot quantify amount. Denies chest pain, denies SOB. Staffed case with ICU. Dr. Andrade said this case can be managed by the floor with subcutaneous insulin and aggressive fluid resuscitation. Patient admitted for mild DKA Review of Systems Review of Systems ROS Unobtainable: unobtainable due to mental status Past Medical History Surgical History SURGICAL: Positive Hx Cholecystectomy Social History SMOKING STATUS: Current some day smoker SUBSTANCE USE: amphetamines SUBSTANCE LAST USED: unknown ALCOHOL: Former HOUSING: Homeless LIVES WITH: Friend(s) Exam Vital Signs Temp Pulse Resp BP Pulse Ox O2 Del Method 98.7 F 125 H 18 161/132 H 96 Room Air 06/07/25 10:15 06/07/25 10:15 06/07/25 10:15 06/07/25 10:15 06/07/25 10:15 06/07/25 10:15 Narrative Exam General: appears confused, resting on left lateral decubitus Eye: PERRL, EOMI, normal conjunctiva, no scleral icterus HENT: Normocephalic, atraumatic, normal hearing, pale and dry mucous membranes Neck: Supple, non-tender, no JVD, no lymphadenopathy Lungs: Clear to auscultation bilaterally, non-labored respirations, symmetric chest rise, no use of accessory muscles Heart: Normal S1 and S2, no S3 or S4 appreciated. Tachy rate and regular rhythm, no murmurs, rubs gallops, or edema. Peripheral pulses intact bilaterally, capillary refill > 2 sec Abdomen: Soft, non-tender, non-distended, normal bowel sounds. No guarding or rebound tenderness. Suprapubic tenderness. Musculoskeletal: Normal range of motion and strength. Sacral base erythematous and TTP on coccyx. Lumbar is tender and erythematous. Skin: Skin is warm, dry, no rashes or lesions. Neurologic: Alert, awake and oriented x2. CN II-XII grossly intact. No focal neuro deficits. No signs of meningeal irritation noted. Psychiatric: Cooperative, appropriate mood and affect Results: Labs 06/08/25 05:00 06/08/25 05:00 Labs: Short CBC 06/07/25 Range/Units 10:30 WBC 23.6 H (3.6-11.0) Thou/mm3 Hgb 18.5 H (12.0-16.0) g/dL Hct 58.3 H (36.0-46.0) % Plt Count 444 H D (140-440) Thou/mm3 BMP 06/07/25 06/07/25 10:30 11:50 Sodium 144 143 Potassium 4.2 4.3 Chloride 103 106 Carbon Dioxide 22.5 17.4 L BUN 32 H 42 H Creatinine 1.4 H 1.2 Glucose 440 H* 425 H* Calcium 9.9 8.7 Cardiac Enzymes 06/07/25 Range/Units 10:30 Troponin I < 0.002 (0.0-0.045) ng/mL Liver Function 06/07/25 06/07/25 Range/Units 10:30 11:50 Total Bilirubin 0.5 (0.3-1.2) mg/dL AST 64 H (0-34) U/L ALT 94 H (10-49) U/L Alkaline Phosphatase 152 H (46-116) U/L Albumin 5.1 H 4.3 D (3.5-5.0) gm/dL Urine 06/07/25 Range/Units 10:57 Urine Color Yellow (Lt Yel-Yel) Urine Clarity Turbid A (Clear/Hazy) Urine pH 5.5 (5.0-7.0) Ur Specific Hendricks 1.032 (1.001-1.035) Urine Protein 1+ A (Neg - Trace) Urine Glucose (UA) 4+ A (Negative) Quality Measures Quality Measures none Medications Home Medications and Allergies Allergies Allergy/AdvReac Type Severity Reaction Status Date / Time latex Allergy Severe Rash Verified 05/12/25 19:13 Sulfa (Sulfonamide Allergy Severe RASH Verified 05/12/25 19:13 Antibiotics) Visit Medications Acetaminophen (Acetaminophen 325 Mg Tablet) 650 mg PO Q6H PRN PRN Reason: Fever >100.4 or mild pain 1-3 Stop: 07/07/25 14:09 Hydrocodone Bitart/Acetaminophen (Hydrocodone/Apap 5/325 Tablet) 1 tab PO Q6HR PRN PRN Reason: PAIN SCALE 4-10(Mod-Sev Stop: 06/12/25 14:09 Albuterol/Ipratropium (Albuterol/Ipratropium (Duoneb) Rt Marisol 3 Ml Nebu) 3 ml INH Q6HRRT PRN PRN Reason: WHEEZING Stop: 07/07/25 18:59 Dextrose (Dextrose 50%-Water Inj 50 Ml Syringe) 25 ml IV Q15MIN PRN PRN Reason: BG 50-70 responsive npo pt Stop: 07/07/25 14:14 Dextrose (Dextrose 50%-Water Inj 50 Ml Syringe) 50 ml IV Q15MIN PRN PRN Reason: BG <50 OR BG <70 & pt unresponsive Stop: 07/07/25 14:14 Docusate Sodium (Docusate Sod 100 Mg Capsule) 100 mg PO QDAY DARIN; Protocol Stop: 07/07/25 14:14 Last Admin: 06/07/25 14:22 Dose: Not Given Glucagon (Glucagon Inj 1 Mg Vial) 1 mg IM Q15MIN PRN PRN Reason: BG <70, and no IV access Heparin Sodium (Porcine) (Heparin Sod Inj 5000 Unit/Ml Vial) 5,000 unit SC Q12HR [facility]ARIN Stop: 06/21/25 20:59 Lactated Ringer's (Lactated Ringers) 1,000 mls @ 999 mls/hr IV .Q1H1M ONE Stop: 06/07/25 15:19 Last Admin: 06/07/25 14:34 Dose: 999 mls/hr Lactated Ringer's (Lactated Ringers) 1,000 mls @ 125 mls/hr IV .Q8H DARIN Stop: 06/08/25 06:19 Piperacillin/Tazobactam/Dextrose (Zosyn) 3.375 gm in 50 mls @ 12.5 mls/hr IV Q8HR DARIN; Protocol Stop: 06/14/25 21:59 Insulin Degludec (Insulin Degludec 5 Unit/0.05 Ml (Per 5 Units)) 10 unit SC QDAY [facility] Stop: 07/07/25 14:29 Last Admin: 06/07/25 14:34 Dose: 10 unit Insulin Human Lispro (Insulin Lispro (Admelog) 1 Unit/0.01 Ml Unit) 0 unit SC ACHS [facility]; Protocol Stop: 07/07/25 16:59 Insulin Human Lispro (Insulin Lispro (Admelog) 1 Unit/0.01 Ml Unit) 5 unit SC ACHS [facility] Stop: 07/07/25 16:59 Nicotine (Nicotine Patch 14 Mg/24 Hr Patch.Td24) 14 mg TOP QDAY [facility] Stop: 07/07/25 14:29 Ondansetron HCl (Ondansetron Inj 2 Mg/Ml Inj 2 Ml) 4 mg IVP Q6H PRN; Protocol PRN Reason: NAUSEA OR VOMITING Stop: 07/07/25 14:09 Pantoprazole Sodium (Pantoprazole 40 Mg Tablet) 40 mg PO QDAY [facility] Stop: 07/07/25 14:14 Last Admin: 06/07/25 14:33 Dose: 40 mg Discontinued Medications Sodium Chloride (Ns) 1,000 mls @ 999 mls/hr IV .Q1H1M ONE Stop: 06/07/25 11:28 Last Infusion: 06/07/25 11:31 Dose: Infused Ceftriaxone Sodium/Dextrose (Rocephin/D5w 1gm Iv Premix) 1 gm in 50 mls @ 100 mls/hr IV X1 ONE Stop: 06/07/25 12:03 Last Infusion: 06/07/25 12:32 Dose: Infused Sodium Chloride (Ns) 1,000 mls @ 999 mls/hr IV .Q1H1M ONE Stop: 06/07/25 12:35 Last Infusion: 06/07/25 13:04 Dose: Infused Piperacillin/Tazobactam/Dextrose (Zosyn) 3.375 gm in 50 mls @ 100 mls/hr IV X1 ONE; Protocol Stop: 06/07/25 14:59 Last Admin: 06/07/25 14:37 Dose: 100 mls/hr Insulin Human Regular (Insulin Hum Regular 1 Unit/0.01 Ml (Per Unit)) 10 unit IV X1 ONE Stop: 06/07/25 11:31 Last Admin: 06/07/25 12:01 Dose: 10 unit Insulin Human Regular (Insulin Hum Regular 1 Unit/0.01 Ml (Per Unit)) 10 unit IV X1 ONE Stop: 06/07/25 14:19 Last Admin: 06/07/25 14:40 Dose: Not Given Assessment & Plan Plan 54-year-old female with PMHx of diabetes mellitus, amphetamine use disorder and hypertension presents for altered mental status x2 days. #DKA, mild #DMT2, uncontrolled with hyperglycemia #Medical inaccessibility/barriers BG 440 --> 425; BHB 1.4; lactate 4.6 --> 3.2 VBG: pH 7.31; pCO2 42 CXR shows vascular congestion Ddx: HHS ruled-out -pending A1c -daily CMP daily, CTM BG -trend lactate q4 until 06/08 -maintenance fluids LR @ 125 -ISS (subQ)with hypoglycemic protocol -Degludec inj subQ 10U and lispro 5U subQ daily -pending urine electrolytes and creatinine -diabetes education #UTI #SIRS Positive Patient says she had suprapubic tenderness, increased urine frequency and dysuria WBC 23.6, Tachy 125 bpm UA glucose 4+, ketones 1+, blood 2+ Urine RBC 530, urine WBC 398, urine bacteria 4+, and urine yeast (budding) present. -started Zosyn 3.375 gm IV q8hrs -CTM clinically #Dental abscess #Thrush #R Facial Tenderness Cannot tell if infection is tacking into maxillary sinus on CT head -Zosyn empiric coverage included -schedule appt for OP dental extraction -educate on dental hygiene #Coccyx tenderness #? Pressure ulcer vs superficial fungal skin infection Sacral base erythematous and TTP on coccyx -apply zinc oxide oinment -reposition patient #Nicotine use disorder -nicotine patch 14mg daily scheduled -duoneb q6 #History of HTN -CTM clinically #Nausea -zofran 4mg IV PRN Checklist: Dispo: admit to tele Diet: low carb diet PUD PPX: 40mg PO Protonix daily VTE PPX: heparin 5000U BID O2: 2L NC PRN Code Status: FULL CODE Case was discussed with Attending Dr. Simpson, and Senior Resident Dr. Mary Huang, DO PGY-1 Attending Provider Attestation/Addendum I have examined the patient, reviewed labs and imaging findings, discussed the case with the resident(s), and reviewed entered orders. I agree with the plan of care as outlined in this note, with these additional summaries/recommendations: After examination of the patient and review of the clinical data, I feel that this patient needs admission to the hospital for further treatment and evaluation. Patient is a 54-year-old female with a medical history of primary hypertension, diabetes mellitus type 2, COPD, tobacco use, and dyslipidemia presents to [facility] emergency department on 06/07/2025 with chief complaint of encephalopathy and generalized weakness. Patient seen at bedside and appears encephalopathy has now resolved. Patient diagnosed with diabetic ketoacidosis with likely uncontrolled diabetes mellitus type 2 is patient reports medication noncompliance and has not taken any hypoglycemic agents and over 4 days. Patient was counseled on medication compliance. Order A1c. Start basal bolus insulin. Target blood sugar of 140-180 while hospitalized. Urinalysis suggestive of urinary tract infection and patient does endorse urinary symptoms. Start IV Zosyn and follow-up culture results. Start daily nicotine patch for chronic tobacco use. Patient reports she has severe eczema and follows dermatology. Patient will be admitted to the hospital for further management of diabetic ketoacidosis. Patient updated on the plan and in agreement. All questions answered to satisfaction. Please see residents note for additional details and management. Dr. Calvin MD
[2025-06-07 15:07] LABS: Base Excess, Venous -5 (-3-3); O2 Saturation, Venous 78 % (96-97); PCO2, Venous 42 mmHg (36-56); PO2, Venous 45 mmHg (15-58); pH, Venous 7.31 (7.33-7.66)
[2025-06-07 15:09] LABS: Lactate (Lactic Acid) 3.2 mMol/L (0.4-2.0)
[2025-06-07 15:15] LABS: Reflex Lactate? Y
[2025-06-07] MEDS: NICOTINE PATCH 14 MG/24 HR PATCH.TD24 TOP (15:26)
[2025-06-07] MEDS: INSULIN LISPRO (AdmeLOG) 1 UNIT/0.01 ML UNIT 5 UNIT SC ×2 (16:04→20:49)
[2025-06-07] MEDS: INSULIN LISPRO (AdmeLOG) 1 UNIT/0.01 ML UNIT SC ×2 (16:05→20:49)
[2025-06-07 18:04] LABS: Reflex Lactate? Y
[2025-06-07 19:38] LABS: Lactate (Lactic Acid) 3.2 mMol/L (0.4-2.0)
[2025-06-07 20:04] LABS: Albumin, Serum 4.1 gm/dL (3.5-5.0); Anion Gap 11 (7-16); BUN/Creatinine Ratio 29 Ratio (12-20); Blood Urea Nitrogen 29 mg/dL (9-23); Calcium 8.7 mg/dL (8.3-10.6); Calcium (Corrected) 8.7 mg/dL (8.5-10.1); Carbon Dioxide 24.8 mMol/L (20.0-31.0); Chloride 107 mMol/L (98-107); Creatinine (Component) 1.0 mg/dL (0.6-1.3); Glucose 234 mg/dL (74-106); Osmolality,Calculated 298 (275-295); Phosphorous 2.5 mg/dL (2.4-5.1); Potassium 3.7 mMol/L (3.4-5.1); Sodium 143 mMol/L (136-145); eGFR > 60 See Note
[2025-06-07] MEDS: HEPARIN SOD INJ 5000 UNIT/ML VIAL SC (20:50)
[2025-06-07] MEDS: RINGERS LACTATED 1000 ML 1,000 ML 125 ML IV (21:15)
[2025-06-07 22:37] LABS: Reflex Lactate? Y
[2025-06-07 22:59] LABS: Lactic Acid, 3 HR 2.0 mMol/L (0.4-2.0)
[2025-06-08] VITALS (7 sets, daily range): BP systolic 118–135; BP diastolic 66–84; PULSE 86–98; RESP 16–94; TEMP 36.1–36.8; O2SAT 92–99; BMI 31.4
[2025-06-08] MEDS: PIPER/TAZO 3.375 GM PREMIX 3.375 GM/50 ML BAG IV ×3 (05:15→22:05)
[2025-06-08 06:16] LABS: Basophils # (Auto) 0.1 Thou/mm3 (0.0-0.2); Basophils % (Auto) 1 % (0-2.5); Eosinophils # (Auto) 0.3 Thou/mm3 (0.0-0.5); Eosinophils % (Auto) 2 % (0-10); Hematocrit 38.1 % (36.0-46.0); Hemoglobin 12.9 g/dL (12.0-16.0); Immature Granulocytes Auto 0.04 Thou/mm3 (0.00-0.00); Lymphocytes # (Auto) 2.7 Thou/mm3 (1.0-4.8); Lymphocytes % (Auto) 25 % (10-50); Mean Corpuscular HGB Conc 33.9 g/dl (31.0-37.0); Mean Corpuscular Hemoglobin 30.1 pg (25.0-35.0); Mean Corpuscular Volume 89 fL (80-100); Monocytes # (Auto) 0.5 Thou/mm3 (0.0-0.8); Monocytes % (Auto) 5 % (0-12); Neutrophils # (Auto) 7.4 Thou/mm3 (1.8-7.7); Neutrophils % (Auto) 67 % (37-80); Nucleated Red Blood Cell # 0.00 Thou/mm3 (0.00-0.00); Nucleated Red Blood Cell % 0 /100 WBC (0); Platelet Count 237 Thou/mm3 (140-440); RDW Standard Deviation 45.0 fL (36.4-46.3); Red Blood Count 4.28 Miln/mm3 (4.00-5.20); White Blood Count 11.0 Thou/mm3 (3.6-11.0)
[2025-06-08 06:54] LABS: Chloride,Urine Random 50.7 mMol/L (55.0-125.0); Creatinine,Random Urine 85 mg/dL (30-125); Potassium,Urine Random 19 mMol/L (12-62); Sodium,Urine Random 32.9 mMol/L (20.0-110.0)
[2025-06-08 06:55] LABS: Alanine Aminotransferase 41 U/L (10-49); Albumin, Serum 3.4 gm/dL (3.5-5.0); Albumin/Globulin Ratio 1.5 (1.2-2.2); Alkaline Phosphatase 93 U/L (46-116); Anion Gap 11 (7-16); Aspartate Amino Transferase 23 U/L (0-34); BUN/Creatinine Ratio 20 Ratio (12-20); Bilirubin,Total 0.6 mg/dL (0.3-1.2); Blood Urea Nitrogen 16 mg/dL (9-23); Calcium 8.5 mg/dL (8.3-10.6); Calcium (Corrected) 9.0 mg/dL (8.5-10.1); Carbon Dioxide 23.1 mMol/L (20.0-31.0); Cardiac Risk Estimate 7.5 RATIO (3.7-5.6); Chloride 112 mMol/L (98-107); Cholesterol 187 mg/dL (132-200); Creatinine (Component) 0.8 mg/dL (0.6-1.3); Globulin 2.2 gm/dL (2.3-3.5); Glucose 221 mg/dL (74-106); HDL Cholesterol 25 mg/dL (40-60); LDL Cholesterol,Calculated 114 mg/dL (0-130); Magnesium 1.5 mg/dL (1.6-2.6); Osmolality,Calculated 298 (275-295); Phosphorous 2.7 mg/dL (2.4-5.1); Potassium 3.7 mMol/L (3.4-5.1); Sodium 146 mMol/L (136-145); Thyroid Stimulating Hormone 4.65 uIU/mL (0.55-4.78); Total Protein 5.6 gm/dL (5.7-8.2); Triglycerides 242 mg/dL (30-150); eGFR > 60 See Note
[2025-06-08 07:30] LABS: Hepatitis A Antibody IgM Non Reactive (Non React); Hepatitis B Core Antibody IgM Non Reactive (Non React); Hepatitis B Surface Antigen Non Reactive (Non React); Hepatitis C Antibody Non Reactive (Non React)
[2025-06-08 07:52] LABS: Glucose Estimated Average 292 mg/dL (80-131); Hemoglobin A1C 11.8 % Hgb (4.8-6.0)
[2025-06-08] MEDS: PANTOPRAZOLE 40 MG TABLET PO (08:05)
[2025-06-08] MEDS: NICOTINE PATCH 14 MG/24 HR PATCH.TD24 TOP (08:05)
[2025-06-08] MEDS: INSULIN LISPRO (AdmeLOG) 1 UNIT/0.01 ML UNIT 5 UNIT SC (08:06)
[2025-06-08] MEDS: INSULIN LISPRO (AdmeLOG) 1 UNIT/0.01 ML UNIT SC ×4 (08:06→22:06)
[2025-06-08] MEDS: INSULIN DEGLUDEC 5 UNIT/0.05 ML (PER 5 UNITS) 10 UNIT SC (08:07)
[2025-06-08] MEDS: HEPARIN SOD INJ 5000 UNIT/ML VIAL SC ×2 (08:07→22:05)
[2025-06-08 08:41] LABS: HIV (1&2) Antibody Rapid Non-Reactive
--- NOTE | 2025-06-08 08:45 | ESPR_ITS ---
Documentation for date of: 06/08/25 Subjective Subjective Interval history: KYM, AOx3, patient laying supine in bed, labs reviewed CBC unremarkable, BMP unremarkable except glucose 221. Hbg A1c 11.8. HIV rapid negative and hepatits panel negative. Urine electrolytes wnl. Ordered urine micralbumin with creatitine, will follow up. Blood Cx x2 penidng. Patient says she may have had a previous episode of HHS/DKA due to her feeling thirsty and dehydrated, and she slept for 3 days. Patient educated on diabetes condition and possibility of ordering glucose sensor since patient medicall non-compliant. Exam Vital Signs Temp Pulse Resp BP Pulse Ox O2 Del Method 97.0 F 89 17 118/72 92 L Room Air 06/08/25 08:00 06/08/25 08:00 06/08/25 08:00 06/08/25 08:00 06/08/25 08:00 06/08/25 04:00 Narrative Exam General: No acute distress, well nourished Eye: PERRL, EOMI, normal conjunctiva, no scleral icterus HENT: Normocephalic, atraumatic, normal hearing, pink and moist mucous membranes Neck: Supple, non-tender, no JVD, no lymphadenopathy Lungs: Clear to auscultation bilaterally, non-labored respirations, symmetric chest rise, no use of accessory muscles Heart: Normal S1 and S2, no S3 or S4 appreciated. Normal rate and regular rhythm, no murmurs, rubs gallops, or edema. Peripheral pulses intact bilaterally, capillary refill brisk distally Abdomen: Soft, non-tender, non-distended, normal bowel sounds. No guarding or rebound tenderness. Musculoskeletal: Normal range of motion and strength. Skin: Skin is warm, dry, no rashes or lesions. Base of neck shows signs of erythema. Arms have signs of psoriasis, excoritation and scattered bright-red lesions on forearms. Neurologic: Alert, awake and oriented x3. CN II-XII grossly intact. No focal neuro deficits. No signs of meningeal irritation noted. Psychiatric: Cooperative, appropriate mood and affect Objective Labs 06/08/25 05:00 06/08/25 05:00 Labs: Laboratory Results - last 24 hr 06/07/25 06/07/25 06/07/25 10:30 10:57 11:25 WBC 23.6 H RBC 6.32 H Hgb 18.5 H Hct 58.3 H MCV 92 MCH 29.3 MCHC 31.7 RDW Std Deviation 46.7 H Plt Count 444 H D Neut % (Auto) 80 Lymph % (Auto) 14 [place] % (Auto) 5 Eos % (Auto) 0 Baso % (Auto) 1 Neut # (Auto) 18.8 H Lymph # (Auto) 3.3 [place] # (Auto) 1.1 H Eos # (Auto) 0.0 Baso # (Auto) 0.2 Immature Gran # (Auto) 0.13 H Absolute Nucleated RBC 0.00 Immature Gran % 1 H Nucleated RBC % 0 PT 11.4 INR 1.1 APTT 29.0 VBG pH VBG pCO2 VBG pO2 VBG O2 Sat (Alex) VBG Base Excess Sodium 144 Potassium 4.2 Chloride 103 Carbon Dioxide 22.5 Anion Gap 19 H BUN 32 H Creatinine 1.4 H Estim Creat Clear Calc Not Performed. eGFR 45 L BUN/Creatinine Ratio 23 H Glucose 440 H* Estimated Ave Glu mg/dL Hemoglobin A1c Calculated Osmolality 312 H Lactic Acid 4.6 H* Calcium 9.9 Corrected Calcium 9.9 Phosphorus Magnesium 2.3 Total Bilirubin 0.5 AST 64 H ALT 94 H Alkaline Phosphatase 152 H Troponin I < 0.002 B-Natriuretic Peptide < 20 Total Protein 8.5 H Albumin 5.1 H Globulin 3.4 Albumin/Globulin Ratio 1.5 Triglycerides Cholesterol LDL Cholesterol, Calc HDL Cholesterol Cholesterol/HDL Ratio Lipase 34 Beta-Hydroxybutyrate/Acetoacetate 1.4 H Procalcitonin 0.07 TSH Ur Collection Type Clean Catch Urine Color Yellow Urine Clarity Turbid A Urine pH 5.5 Ur Specific [place] 1.032 Urine Protein 1+ A Urine Glucose (UA) 4+ A Urine Ketones 1+ A Urine Blood 2+ A Urine Nitrite Negative Urine Bilirubin Negative Urine Urobilinogen (Auto) 2.0 Ur Leukocyte Esterase Positive Urine RBC 530 H Urine WBC 398 H Ur Squamous Epith Cells 17 H Urine Bacteria 4+ A Urine Yeast (Budding) Present A Ur Culture Indicated? Contaminated Ur Random Creatinine Ur Random Sodium Ur Random Potassium Ur Random Chloride Urine Opiates Screen Negative Urine Fentanyl Screen Negative Ur Barbiturates Screen Negative U Amphetamin/Meth Scrn Negative U Benzodiazepines Scrn Negative U Cocaine Metab Screen Negative U Marijuana (THC) Screen Negative Ethyl Alcohol < 3.0 Hepatitis A IgM Ab Hep Bs Antigen Hep B Core IgM Ab Hepatitis C Antibody HIV 1&2 Antibody Rapid Influenza A (Rapid) Negative Influenza B (Rapid) Negative 06/07/25 06/07/25 06/07/25 11:50 14:37 19:21 WBC RBC Hgb Hct MCV MCH MCHC RDW Std Deviation Plt Count Neut % (Auto) Lymph % (Auto) [place] % (Auto) Eos % (Auto) Baso % (Auto) Neut # (Auto) Lymph # (Auto) [place] # (Auto) Eos # (Auto) Baso # (Auto) Immature Gran # (Auto) Absolute Nucleated RBC Immature Gran % Nucleated RBC % PT INR APTT VBG pH 7.31 L VBG pCO2 42 VBG pO2 45 VBG O2 Sat (Alex) 78 L VBG Base Excess -5 L Sodium 143 143 Potassium 4.3 3.7 D Chloride 106 107 Carbon Dioxide 17.4 L 24.8 Anion Gap 20 H 11 BUN 42 H 29 H Creatinine 1.2 1.0 Estim Creat Clear Calc Not Performed. Not Performed. eGFR 54 L > 60 BUN/Creatinine Ratio 35 H 29 H Glucose 425 H* [address] Glu mg/dL Hemoglobin A1c Calculated Osmolality 313 H 298 H Lactic Acid 3.2 H 3.2 H Calcium 8.7 8.7 Corrected Calcium 8.7 8.7 Phosphorus 4.9 2.5 Magnesium Total Bilirubin AST ALT Alkaline Phosphatase Troponin I B-Natriuretic Peptide Total Protein Albumin 4.3 D 4.1 Globulin Albumin/Globulin Ratio Triglycerides Cholesterol LDL Cholesterol, Calc HDL Cholesterol Cholesterol/HDL Ratio Lipase Beta-Hydroxybutyrate/Acetoacetate Procalcitonin TSH Ur Collection Type Urine Color Urine Clarity Urine pH Ur Specific [place] Urine Protein Urine Glucose (UA) Urine Ketones Urine Blood Urine Nitrite Urine Bilirubin Urine Urobilinogen (Auto) Ur Leukocyte Esterase Urine RBC Urine WBC Ur Squamous Epith Cells Urine Bacteria Urine Yeast (Budding) Ur Culture Indicated? Ur Random Creatinine Ur Random Sodium Ur Random Potassium Ur Random Chloride Urine Opiates Screen Urine Fentanyl Screen Ur Barbiturates Screen U Amphetamin/Meth Scrn U Benzodiazepines Scrn U Cocaine Metab Screen U Marijuana (THC) Screen Ethyl Alcohol Hepatitis A IgM Ab Hep Bs Antigen Hep B Core IgM Ab Hepatitis C Antibody HIV 1&2 Antibody Rapid Influenza A (Rapid) Influenza B (Rapid) 06/07/25 06/08/25 06/08/25 22:48 05:00 05:27 WBC 11.0 D RBC 4.28 Hgb 12.9 D Hct 38.1 D MCV 89 MCH 30.1 MCHC 33.9 RDW Std Deviation 45.0 Plt Count 237 D Neut % (Auto) 67 Lymph % (Auto) 25 [place] % (Auto) 5 Eos % (Auto) 2 Baso % (Auto) 1 Neut # (Auto) 7.4 Lymph # (Auto) 2.7 [place] # (Auto) 0.5 Eos # (Auto) 0.3 Baso # (Auto) 0.1 Immature Gran # (Auto) 0.04 H Absolute Nucleated RBC 0.00 Immature Gran % 0 Nucleated RBC % 0 PT INR APTT VBG pH VBG pCO2 VBG pO2 VBG O2 Sat (Alex) VBG Base Excess Sodium 146 H Potassium 3.7 Chloride 112 H Carbon Dioxide 23.1 Anion Gap 11 BUN 16 Creatinine 0.8 Estim Creat Clear Calc Not Performed. eGFR > 60 BUN/Creatinine Ratio [address]ucose [address] Glu mg/dL 292 H Hemoglobin A1c 11.8 H Calculated Osmolality 298 H Lactic Acid 2.0 Calcium 8.5 Corrected Calcium 9.0 Phosphorus 2.7 Magnesium 1.5 L Total Bilirubin 0.6 AST 23 ALT 41 Alkaline Phosphatase 93 D Troponin I B-Natriuretic Peptide Total Protein 5.6 L Albumin 3.4 L D Globulin 2.2 L Albumin/Globulin Ratio 1.5 Triglycerides 242 H Cholesterol 187 LDL Cholesterol, Calc 114 HDL Cholesterol 25 L Cholesterol/HDL Ratio 7.5 H Lipase Beta-Hydroxybutyrate/Acetoacetate Procalcitonin TSH 4.65 Ur Collection Type Urine Color Urine Clarity Urine pH Ur Specific [place] Urine Protein Urine Glucose (UA) Urine Ketones Urine Blood Urine Nitrite Urine Bilirubin Urine Urobilinogen (Auto) Ur Leukocyte Esterase Urine RBC Urine WBC Ur Squamous Epith Cells Urine Bacteria Urine Yeast (Budding) Ur Culture Indicated? Ur Random Creatinine 85 Ur Random Sodium 32.9 Ur Random Potassium 19 Ur Random Chloride 50.7 L Urine Opiates Screen Urine Fentanyl Screen Ur Barbiturates Screen U Amphetamin/Meth Scrn U Benzodiazepines Scrn U Cocaine Metab Screen U Marijuana (THC) Screen Ethyl Alcohol Hepatitis A IgM Ab Non Reactive Hep Bs Antigen Non Reactive Hep B Core IgM Ab Non Reactive Hepatitis C Antibody Non Reactive HIV 1&2 Antibody Rapid Non-Reactive Influenza A (Rapid) Influenza B (Rapid) ABG Interpretation ABG results: 06/07/25 14:37 VBG pH 7.31 L VBG pCO2 42 VBG pO2 45 VBG Base Excess -5 L Quality Measures Quality Measures none Assessment & Plan Assessment Current Active Medications: Generic Name Dose Route Start Last Admin Trade Name Freq PRN Reason Stop Dose Admin Acetaminophen 650 mg 06/07/25 14:10 Acetaminophen 325 Mg Tablet PO 07/07/25 14:09 Q6H PRN Fever >100.4 or mild pain 1-3 Hydrocodone Bitart/Acetaminophen 1 tab 06/07/25 14:10 Hydrocodone/Apap 5/325 Tablet PO 06/12/25 14:09 Q6HR PRN PAIN SCALE 4-10(Mod-Sev Albuterol/Ipratropium 3 ml 06/07/25 14:10 Albuterol/Ipratropium (Duoneb) Rt Marisol 3 Ml Nebu INH 07/07/25 18:59 Q6HRRT PRN WHEEZING Dextrose 25 ml 06/07/25 14:15 Dextrose 50%-Water Inj 50 Ml Syringe IV 07/07/25 14:14 Q15MIN PRN BG 50-70 responsive npo pt Dextrose 50 ml 06/07/25 14:15 Dextrose 50%-Water Inj 50 Ml Syringe IV 07/07/25 14:14 Q15MIN PRN BG <50 OR BG <70 & pt unresponsive Docusate Sodium 100 mg 06/07/25 14:15 06/08/25 08:07 Docusate Sod 100 Mg Capsule PO 07/07/25 14:14 Not Given QDAY DARIN Protocol Glucagon 1 mg 06/07/25 14:15 Glucagon Inj 1 Mg Vial IM Q15MIN PRN BG <70, and no IV access Heparin Sodium (Porcine) 5,000 unit 06/07/25 21:00 06/08/25 08:07 Heparin Sod Inj 5000 Unit/Ml Vial SC 06/21/25 20:59 5,000 unit Q12HR DARIN Administration Piperacillin/Tazobactam/Dextrose 3.375 gm in 50 mls @ 12.5 mls/hr 06/07/25 22:00 06/08/25 05:15 Zosyn IV 06/14/25 21:59 12.5 mls/hr Q8HR DARIN Administration Protocol Magnesium Sulfate 4 gm in 50 mls @ 12.5 mls/hr 06/08/25 08:33 Magnesium Sulfate Ivpb IV 06/08/25 12:32 X1 ONE Insulin Degludec 10 unit 06/07/25 14:30 06/08/25 08:07 Insulin Degludec 5 Unit/0.05 Ml (Per 5 Units) NC 06/08/25 09:00 10 unit QDAY DARIN Administration Insulin Degludec 25 unit 06/09/25 09:00 Insulin Degludec 5 Unit/0.05 Ml (Per 5 Units) NC 07/09/25 08:59 QDAY DARIN Insulin Degludec 15 unit 06/08/25 08:43 Insulin Degludec 5 Unit/0.05 Ml (Per 5 Units) NC 06/08/25 08:44 X1 ONE Insulin Human Lispro 0 unit 06/07/25 17:00 06/08/25 08:06 Insulin Lispro (Admelog) 1 Unit/0.01 Ml Unit NC 07/07/25 16:59 4 unit ACHS DARIN Administration Protocol Insulin Human Lispro 8 unit 06/08/25 11:30 Insulin Lispro (Admelog) 1 Unit/0.01 Ml Unit NC 07/08/25 11:29 ACHS DARIN Nicotine 14 mg 06/07/25 14:30 06/08/25 08:05 Nicotine Patch 14 Mg/24 Hr Patch.Td24 TOP 07/07/25 14:29 14 mg QDAY DARIN Administration Ondansetron HCl 4 mg 06/07/25 14:10 Ondansetron Inj 2 Mg/Ml Inj 2 Ml IVP 07/07/25 14:09 Q6H PRN NAUSEA OR VOMITING Protocol Pantoprazole Sodium 40 mg 06/07/25 14:15 06/08/25 08:05 Pantoprazole 40 Mg Tablet PO 07/07/25 14:14 40 mg QDAY DARIN Administration Plan 54-year-old female with PMHx of diabetes mellitus, amphetamine use disorder and hypertension presents for altered mental status x2 days. Admitted for acute metabolic encephalopathy secondary to DKA, mild. #Acute Metabolic Encephalopathy, resolved #DKA, mild, resolved #DMT2, uncontrolled with hyperglycemia #Medical inaccessibility/barriers BG 440 --> 425; BHB 1.4; lactate 4.6 --> 3.2 VBG: pH 7.31; pCO2 42 CXR shows vascular congestion Urine electrolytes normal, except urine chloride low at 50 Ddx: HHS ruled-out -pending A1c -daily CMP daily, CTM BG -trend lactate q4 until 06/08 -maintenance fluids LR @ 125 -ISS (subQ)with hypoglycemic protocol -Degludec inj subQ 10U and lispro 5U subQ daily --> Degludec 25U start 06/09 lispro 8U start 06/08 -ordered microalbumin random with creatinine -diabetes 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 -started Zosyn 3.375 gm IV q8hrs -CTM clinically -reordered urine Cx # Hypertriglyceridemia # Dyslipidemia ASCVD score: 16.7 - 26.1% -include high-intensity statin for discharge medications -patient education on ASCVD risk -F/U OP with PCP within one to two weeks #Dental abscess #Thrush #R Facial Tenderness Cannot tell if infection is tacking into maxillary sinus on CT head -Zosyn empiric coverage included -schedule appt for OP dental extraction -educate on dental hygiene -ordered nystatin rinse -F/U OP CT sinus #Coccyx tenderness #? Pressure ulcer vs superficial fungal skin infection Sacral base erythematous and TTP on coccyx -reposition patient #Transaminitis, resolved In ED, AST 64 and ALT 94. Concerning for dehydration in the setting of DKA and decreased oral intake. -HIV negative 06/08 -Hepatitis panel negative 06/08 -Liver panel at baseline 06/08 #Nicotine use disorder -nicotine patch 14mg daily scheduled -duoneb q6 #History of HTN -CTM clinically #Nausea -zofran 4mg IV PRN Checklist: Dispo: admit to tele Diet: low carb diet PUD PPX: 40mg PO Protonix daily VTE PPX: heparin 5000U BID O2: 2L NC PRN Code Status: FULL CODE Case was discussed with Attending Dr. Simpson, and Senior Resident Dr. Mary Huang, DO PGY-1 Attending Provider Attestation/Addendum I have examined the patient, reviewed labs and imaging findings, discussed the case with the resident(s), and reviewed entered orders. I agree with the plan of care as outlined in this note, with these additional summaries/recommendations: Patient seen at bedside. No acute overnight events. She reports improvement in symptoms today. DKA now resolved and anion gap closed x 2. Patient still remains hyperglycemic from uncontrolled diabetes mellitus type 2. A1c 11.8% secondary to medication noncompliance. Patient was counseled on medication compliance and diabetic education ordered. Patient would like freestyle corry on discharge when medically cleared. Patient will also need insulin education. Continue IV antibiotics for urinary tract infection and pending urine culture results. Patient also appears to have oral thrush and we will give oral nystatin. Nicotine patch for tobacco dependence. Outpatient follow-up with dermatology for likely psoriasis versus eczema which is chronic. Patient updated on the plan and in agreement. All questions answered to satisfaction. Please see residents note for additional details and management. Dr. Calvin MD
[2025-06-08] MEDS: Magnesium Sulfate 4 GM Ivpb 4 GM/50 ML BAG IV (10:09)
[2025-06-08] MEDS: POTASSIUM CHLORIDE 10% 20 MEQ/15 ML UDC 40 MEQ PO (10:18)
[2025-06-08] MEDS: INSULIN DEGLUDEC 5 UNIT/0.05 ML (PER 5 UNITS) 15 UNIT SC (10:19)
[2025-06-08] MEDS: INSULIN LISPRO (AdmeLOG) 1 UNIT/0.01 ML UNIT 8 UNIT SC ×2 (12:18→22:06)
[2025-06-08] MEDS: NYSTATIN SUSP 5 ML UDC PO ×3 (12:20→22:06)
--- NOTE | 2025-06-08 13:41 | PC.SS ---
SS follow up note; Blood sugar being monitored. Dietary rec's pending. Patient will possibly discharge home tomorrow.
--- NOTE | 2025-06-08 15:53 | PC.CC ---
Addendum entered and electronically signed by Carlota Gutierrez RPh 06/09/25 13:32: Met w/ patient at bedside for DM education and insulin injection training. Patient reported experience with SQ injector pen devices and was able to verbalize steps independently. Supplemental education provided verbally and via demonstration. Patient declined to practice with insulin pen. Reviewed use of CGM including goal ranges on phone, low and high BG alarms and next steps. Reviewed nutrition and physical activity. Emphasized importance of productive primary care for DM management after discharge. Patient expressed interest in establishing with [facility] as her PCP has relocated. Will request Rx for Freestyle Mary 3 Plus sensors from . Addendum entered and electronically signed by Carlota Gutierrez RPh 06/08/25 16:10: PA approved through 06/08/26. Please prescribe Freestyle Mary 3 Plus sensors Qty 2 +/- Freestyle Mary 3 [place] upon discharge. Original Note: PA submitted via covermymeds for Freestyle Mary [address] sensor [address] Hernandez's request.
--- NOTE | 2025-06-08 17:00 | PC.NURSE ---
PATIENT ALERT AND ORIENTED X4.
[2025-06-08 18:22] LABS: Creatinine MALB Rnd Ur 39 mg/dL (30-125); Microalbumin Creat Ratio 26 mg/gCrea (<30); Microalbumin, Random Urine 10 mg/L (0-300)
[2025-06-09] VITALS: BP 132/71; PULSE 81; RESP 18; TEMP 36.6; O2SAT 98
[2025-06-09 01:19] VITALS: PULSE 85; RESP 16; RESP 92; O2SAT 92
[2025-06-09 04:00] VITALS: BP 116/75; PULSE 75; RESP 18; TEMP 36.1; O2SAT 95
[2025-06-09] MEDS: NYSTATIN SUSP 5 ML UDC PO ×2 (05:29→11:38)
[2025-06-09] MEDS: PIPER/TAZO 3.375 GM PREMIX 3.375 GM/50 ML BAG IV (05:29)
[2025-06-09 06:36] VITALS: PULSE 82; RESP 18; RESP 93
[2025-06-09 07:01] LABS: Basophils # (Auto) 0.1 Thou/mm3 (0.0-0.2); Basophils % (Auto) 1 % (0-2.5); Eosinophils # (Auto) 0.3 Thou/mm3 (0.0-0.5); Eosinophils % (Auto) 4 % (0-10); Hematocrit 37.4 % (36.0-46.0); Hemoglobin 12.4 g/dL (12.0-16.0); Immature Granulocytes Auto 0.03 Thou/mm3 (0.00-0.00); Lymphocytes # (Auto) 2.2 Thou/mm3 (1.0-4.8); Lymphocytes % (Auto) 28 % (10-50); Mean Corpuscular HGB Conc 33.2 g/dl (31.0-37.0); Mean Corpuscular Hemoglobin 29.8 pg (25.0-35.0); Mean Corpuscular Volume 90 fL (80-100); Monocytes # (Auto) 0.4 Thou/mm3 (0.0-0.8); Monocytes % (Auto) 5 % (0-12); Neutrophils # (Auto) 4.8 Thou/mm3 (1.8-7.7); Neutrophils % (Auto) 61 % (37-80); Nucleated Red Blood Cell # 0.00 Thou/mm3 (0.00-0.00); Nucleated Red Blood Cell % 0 /100 WBC (0); Platelet Count 219 Thou/mm3 (140-440); RDW Standard Deviation 44.5 fL (36.4-46.3); Red Blood Count 4.16 Miln/mm3 (4.00-5.20); White Blood Count 7.8 Thou/mm3 (3.6-11.0)
[2025-06-09 07:22] LABS: Alanine Aminotransferase 27 U/L (10-49); Albumin, Serum 3.7 gm/dL (3.5-5.0); Albumin/Globulin Ratio 1.6 (1.2-2.2); Alkaline Phosphatase 98 U/L (46-116); Anion Gap 10 (7-16); Aspartate Amino Transferase 10 U/L (0-34); BUN/Creatinine Ratio 14 Ratio (12-20); Bilirubin,Total 0.4 mg/dL (0.3-1.2); Blood Urea Nitrogen 11 mg/dL (9-23); Calcium 9.0 mg/dL (8.3-10.6); Calcium (Corrected) 9.2 mg/dL (8.5-10.1); Carbon Dioxide 25.9 mMol/L (20.0-31.0); Chloride 108 mMol/L (98-107); Creatinine (Component) 0.8 mg/dL (0.6-1.3); Estimated Creatinine Clearance 84.4 mL/min (>60); Globulin 2.3 gm/dL (2.3-3.5); Glucose 211 mg/dL (74-106); Magnesium 1.8 mg/dL (1.6-2.6); Osmolality,Calculated 292 (275-295); Phosphorous 3.7 mg/dL (2.4-5.1); Potassium 3.6 mMol/L (3.4-5.1); Sodium 144 mMol/L (136-145); Total Protein 6.0 gm/dL (5.7-8.2); eGFR > 60 See Note
[2025-06-09] MEDS: INSULIN DEGLUDEC 5 UNIT/0.05 ML (PER 5 UNITS) 25 UNIT SC (07:39)
[2025-06-09] MEDS: INSULIN LISPRO (AdmeLOG) 1 UNIT/0.01 ML UNIT SC ×2 (07:40→11:37)
[2025-06-09] MEDS: INSULIN LISPRO (AdmeLOG) 1 UNIT/0.01 ML UNIT 8 UNIT SC ×2 (07:40→11:37)
[2025-06-09 08:00] VITALS: BP 105/72; PULSE 73; RESP 16; TEMP 36.1; O2SAT 98
[2025-06-09] MEDS: HEPARIN SOD INJ 5000 UNIT/ML VIAL SC (08:58)
[2025-06-09] MEDS: DOCUSATE SOD 100 MG CAPSULE PO (08:58)
[2025-06-09] MEDS: PANTOPRAZOLE 40 MG TABLET PO (08:58)
[2025-06-09] MEDS: NICOTINE PATCH 14 MG/24 HR PATCH.TD24 TOP (08:58)
--- NOTE | 2025-06-09 09:06 | ESDS_ITS ---
<Statement entered by Salvador Villareal MD - 06/09/25 16:54> I saw and examined patient personally and supervised PGY 1 resident, Dr. Huang with formulating a management plan. I agree with the documentation with the exceptions as listed below. Patient was admitted for uncontrolled diabetes mellitus type 2 [11.8%]. She was treated with subcutaneous insulin and IV fluids for 2 days after which her blood glucose levels were controlled. She will be discharged on insulin degludec 30 units SC daily and insulin lispro 10 units 3 times daily with meals. Currently all patient's labs are returning to baseline and she is clinically stable for discharge to home. Plan of care discussed with Attending Dr. Henry Villareal MD PGY 2 Disclaimer: This note was dictated by speech recognition. Minor errors in court orderly may be present due to voice recognition software. Planned Discharge Date 06/09/25 DS: Providers Provider Date of admission: 06/07/25 14:07 Primary care physician: Ta Loaiza PA-C Admitting Provider: Garret Simpson MD Attending Provider on Admission: Garret Simpson MD Consults: 06/07/25 14:27 Consult Diabetic Routine Comment: DKA Attending Provider on DC: Abigail Huang MD Discharging Provider: Abigail Huang MD DS: Diagnosis Problem List Completed Was Problem List Reviewed/Reconciled?: Yes Hospital Course Hospital Course Hospital course: 54-year-old female with PMHx of diabetes mellitus, amphetamine use disorder and hypertension presents for altered mental status x2 days. Admitted for acute metabolic encephalopathy secondary to DKA, mild. ED Course: Blood glucose 519 on arrival. 98.7 T 125 HR 18 RR 161/132 BP 96% on RA. WBC 23.6, PLT 444, Hbg 18.5, Hct 58.3. Coag panel unremarkable. Anion Gap 19, BUN 32, Cr 1.4 and Glucose 440. Calc Osm 312. Lactate 4.6. BHB 1.4. UA glucose 4+, ketones 1+, blood 2+, urine RBC 530, urine WBC 398, urine bacteria 4+, and urine yeast (budding) present. CXR showed mild vascular congestion, no PNA and no pulmonary edema. EKG NSR. In the ED, given 2L bolus of NS, rocephin 1g IV, and regular insulin 10U IV. Hospital Course: Patient was admitted for mild DKA secondary to uncontrolled diabetes mellitus type 2 [11.8%]. Beta-hydroxybutyrate 1.4, anion gap closed on 06/07. She was treated with subcutaneous insulin and IV fluids for 2 days after which her blood glucose levels were controlled. Patient's chronic conditions of psoriasis were managed with topical creams and she was given a prescription. A glucose sensor was also retrieved for patient through her insurance and given to her at time of dischrage. She will be discharged on insulin degludec 30 units SC daily and insulin lispro 10 units 3 times daily with meals. Currently all patient's labs are returning to baseline and she is clinically stable for discharge to home. Instructions: - Continue antibiotics for 2 more days - Take your cholesterol pill as directed below - Take long acting insulin once a day as directed - Take short acting insulin 15 minutes before meals - Stop smoking and use nicotine patch. - Recommend to see a dentist for your dental abscess - Follow up with your primary care physician within 1 week of discharge. If you do not have a primary care physician, please follow up with the [facility] Residents clinic ([phone]) ? If you experience any new, worsening or persistent symptoms either call your primary doctor, or dial 911 or present to the emergency department. #Acute Metabolic Encephalopathy, resolved #DKA, mild, resolved #DMT2, uncontrolled with hyperglycemia #Medical inaccessibility/barriers #UTI #SIRS Positive # Hypertriglyceridemia # Dyslipidemia ASCVD score: 16.7 - 26.1% #Dental abscess #Thrush #R Facial Tenderness #Coccyx tenderness #? Pressure ulcer vs superficial fungal skin infection #Transaminitis, resolved #Nicotine use disorder #History of HTN #Nausea Case was discussed with Attending Dr. Figueroa, and Senior Resident Dr. Dionna Huang, DO PGY-1 Status at Discharge Functional status at discharge: independent ambulation Overall status at discharge: patient is back to baseline Time Spent with Patient Time attestation: Total time spent providing and/or coordinating discharge services: Time spent: Greater than 30 minutes Exam Vital Signs Temp Pulse Resp BP Pulse Ox O2 Del Method 97.0 F 82 18 116/75 95 Room Air 06/09/25 04:00 06/09/25 06:36 06/09/25 06:36 06/09/25 04:00 06/09/25 04:00 06/09/25 04:00 Discharge Plan Plan Patient Disposition: HOME (Self Care) Patient condition on transfer: Stable Care Plan Goals: - Continue antibiotics for 2 more days - Take your cholesterol pill as directed below - Take long acting insulin once a day as directed - Take short acting insulin 15 minutes before meals - Stop smoking and use nicotine patch. - Recommend to see a dentist for your dental abscess - Follow up with your primary care physician within 1 week of discharge. If you do not have a primary care physician, please follow up with the [facility] Residents clinic ([phone]) ? If you experience any new, worsening or persistent symptoms either call your primary doctor, or dial 911 or present to the emergency department. Prescriptions/Referrals Prescriptions/Med Rec: New nicotine 14 mg/24 hr Patch 24 Hour 14 mg top QDAY 14 Days Qty: 14 0RF amoxicillin-pot clavulanate 875-125 mg tablet 1 tab PO BID 3 Days Qty: 6 0RF insulin degludec 100 unit/mL (3 mL) insulin pen 30 unit subcut QDAY 30 Days Qty: 15 0RF insulin lispro [Admelog SoloStar U-100 Insulin] 100 unit/mL insulin pen 10 unit subcut TID 30 Days Qty: 15 2RF (DME) pen needle, diabetic [1st Tier Unifine Pentips] 31 gauge x 1/4 needle See Rx Instructions .Route Qty: 100 0RF Rx Instructions: As directed (DME) FreeStyle Mary 3 [place] [facility] See Rx Instructions .Route Qty: 1 0RF Rx Instructions: As directed glucagon 3 mg/actuation spray,non-aerosol 3 mg intranasal PRN PRN (Reason: hypoglycemia) Qty: 2 0RF atorvastatin [Lipitor] 40 mg tablet 40 mg PO QPM 30 Days Qty: 30 2RF Continued albuterol sulfate 90 mcg/actuation HFA aerosol inhaler 2 puff INH Q6H PRN (Reason: shortness of breath or wheezing) Qty: 6.7 0RF loratadine 10 mg capsule 10 mg PO QDAY Qty: 30 0RF Discontinued neomycin-polymyxin B-dexameth 3.5mg/mL-10,000 unit/mL-0.1 % drops,suspension 1 drp ophthalmic (eye) QID Qty: 5 0RF oxycodone-acetaminophen [Percocet] 5-325 mg tablet 1 tab PO Q6H MDD 6 tabs PRN (Reason: pain) Qty: 10 0RF Referrals: [facility] [Outside] Ta Loaiza PA-C [Primary Care Provider] Patient/Caregiver Discharge Instructions Discharge Activity: activity as tolerated Education Materials: Ketoacidosis Ch, Diabetes and High Blood Pressure Print Language: [place]ill[place] Stand Alone Forms: [facility] Award Info., Patient Portal Info Letter Discharge Order Discharge Orders: Discharge (Routine); Ordered 06/09/25 Ordered By: Salvador Villareal Quality Discharge Quality Measures VTE prophylaxis Attestestation MD Attestation I have discussed and was present for the essential components of the discharge history, physical examination, diagnosis, and discharge treatment plan with the resident. I agree with the patient's discharge care as documented by the resident and amended herein by me. Julian Figueroa, . The patient understood all discharge instructions, all questions were answered satisfactorily. The patient was instructed to return to the Emergency Department is symptoms worsened or persisted. But are normalized at time of discharge. Patient was discharged with a CGM and monitor. The importance of her insulin administration and compliance was explained to her and she understood. Rate her A1c was 11.8 on this administration, diabetes clearly uncontrolled which was also explained to her and she understood. Patient was stable, afebrile, tolerating p.o. intake and ambulatory at time of discharge home. Patient will need close follow-up with her PCP for further diabetic management within 1 week of discharge. Although this document has been carefully reviewed, there may still be some phonetic and other typographical errors. These errors are purely grammatical due to imperfections in the software program and should not be construed in any way to compromise the substance of the patient's medical care during this visit. Time Spent on discharge: 32 minutes
[2025-06-09 11:28] VITALS: BP 143/87; PULSE 83; RESP 16; TEMP 36.7; O2SAT 95
== END 2025-06-09 14:52 | disposition home or self-care (01) | DRG 420 ==
LOC: SERX 12:12 → SERHOLD 14:40 → S2NX 16:28 → S3SX 06-08 16:58
PROVIDERS: Admitting Provider Student in an Organized Health Care Education/Training Program; Emergency Provider Emergency Medicine; PCP Physician Assistant; Visit Provider Student in an Organized Health Care Education/Training Program
DX: E11.10 Type 2 diabetes mellitus with ketoacidosis without coma (principal); I10 Essential (primary) hypertension; F17.200 Nicotine dependence, unspecified, uncomplicated; F15.90 Other stimulant use, unspecified, uncomplicated; J44.9 Chronic obstructive pulmonary disease, unspecified; G93.41 Metabolic encephalopathy; N39.0 Urinary tract infection, site not specified; R74.01 Elevation of levels of liver transaminase levels; K04.7 Periapical abscess without sinus; B37.0 Candidal stomatitis; E78.1 Pure hyperglyceridemia; L40.9 Psoriasis, unspecified; L30.9 Dermatitis, unspecified; Z91.148 Patient's other noncompliance with medication regimen for other reason; Z59.00 Homelessness unspecified; Z88.2 Allergy status to sulfonamides
CPT/HCPCS: 36415; 36600; 70450; 71045; 80053; 80061; 80069; 80074; 80307; 80320; 81001; 82010; 82043; 82436; 82570; 82803; 83036; 83605; 83690; 83735; 83880; 84100; 84133; 84145; 84300; 84443; 84484; 85025; 85610; 85730; 86703; 87040; 87086; 87106; 87400; 87502; 87811; 93005; 94762; 96361; 96365; 96372; 99284; J0696; J1644; J1815; J2543; J3475; J7030; J7120; A9270; G0480